=== PATIENT | female | born 1935 | race Two or more races ===

== ENCOUNTER 2018-06-25 09:49 | Inpatient (IN) | payer MEDICARE, MEDICAID ==
[2018-06-25] MEDS ORDERED: NS 0.9% 1000 ML* 1,000 ML IV ONE (10:19)
[2018-06-25 10:51] LABS: ABS Basophils 0.1 10^3/ul (0-0.2); ABS Eosinophils 0.1 10^3/ul (0-0.6); ABS Lymphocytes 1.4 10^3/ul (1.0-4.8); ABS Monocytes 0.5 10^3/ul (0-0.8); ABS Neutrophils 5.9 10^3/ul (1.5-7.7); ABS Nucleated RBC 0 10^3/ul; Eosinophil % 0.7 % (0-6); Hematocrit 39 % (35-47); Hemoglobin 13.4 g/dl (12.0-16.0); Lymphocyte % 17.5 % (25-47); Mean Corpuscular HGB Conc 34 g/dl (31-36); Mean Corpuscular Hemoglobin 31 pg (27-31); Mean Corpuscular Volume 91 fL (80-97); Mean Platelet Volume 9.3 fL (7.4-10.4); Nucleated Red Blood Cells % 0; Platelet Count 171 10^3/ul (150-450); Red Blood Count 4.31 10^6/ul (4.00-5.40); Red Cell Distribution Width 13 % (10.5-15)
--- NOTE | 2018-06-25 10:58 | ED ---
GI/ HPI - HPI Summary HPI Summary: Patient is a 83 y/o F w/ c/o dark black, bloody stool last night. Patient does not speak Micronesian, daughter present to translate. Daughter states that patient was tachycardic and hypotensive last night, EMS was called. They told her that it did not appear there was blood in the stool, asked if patient wanted to go to hospital. Patient refused to go to hospital. This morning patient had another episode of dark black and bloody stool. Daughter also reports that patient vomited this morning, with emesis of a similar appearance to her stool. Patient has had a similar episode in her 40s due to an ulcer which was surgically removed in the [facility]. 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 Patient is not on blood thinners, she is on anti- hypertensive medication and beta kin. Patient denies dizziness, fever, chills, ROMANO, ear pain, sore throat, blurred vision, double vision, neck pain, CP, SOB, ABD pain, back pain, dysuria, hematuria, constipation, edema, bruising, rashes, depression, anxiety. On triage, pain is denied, nothing is noted to aggravate/alleviate Sx. Home medications and allergies are reviewed. - History of Current Complaint Chief Complaint: EDGIBleed Stated Complaint: BLOOD IN STOOL Hx Obtained From: Family/Hide Tanner - daughter Hx From Patient Unobtainable Due To: Other - patient does not speak sinhala Onset/Duration: Started Days Ago - onset last night, Still Present Timing: Intermittent Current Severity: None Pain Intensity: 0 Location of Pain: None Associated Signs and Symptoms: Positive: Vomiting, Black Tarry Stool, Blood w/ Stool, Other: - denies ROMANO, ear pain, sore throat, blurred vision, double vision , neck pain, SOB, edema and rashes. Negative: Back Pain, Dizziness, Bruising, Constipation, Fever, Hematuria, Dysuria, Chills, Abdominal Pain, Chest Pain, UTI Symptoms Aggravating Factor(s): Nothing Alleviating Factor(s): Nothing - Allergy/Home Medications Allergies/Adverse Reactions: Allergies Allergy/AdvReac Type Severity Reaction Status Date / Time brimonidine [From Combigan] Allergy Severe Eyes Verified 06/25/18 09:57 Itchy/Swollen/Red/Watery ciprofloxacin [From Cipro] Allergy Severe GI Upset Verified 06/25/18 09:57 timolol [From Combigan] Allergy Severe Eyes Verified 06/25/18 09:57 Itchy/Swollen/Red/Watery Home Medications: Home Medications Dorzolamide/Timolol OPTH (NF) [Cosopt (NF)] 1 drop BOTH EYES BID 06/25/18 [ History Confirmed 06/25/18] Hydrochlorothiazide TAB* [Hydrodiuril TAB*] 25 - 50 mg PO DAILY 06/25/18 [ History Confirmed 06/25/18] Lisinopril TAB* [Prinivil TAB*] 20 mg PO DAILY 06/25/18 [History Confirmed 06/25] Nadolol TAB* [Corgard TAB*] 40 mg PO DAILY 06/25/18 [History Confirmed 06/25/18] PMH/Surg Hx/FS Hx/Imm Hx Endocrine/Hematology History: Denies: Hx Diabetes Cardiovascular History: Reports: Hx Hypertension Denies: Hx Congestive Heart Failure, Hx Pacemaker/ICD History: Denies: Hx Renal Disease Sensory History: Reports: Hx Hearing Aid Neurological History: Denies: Other Neuro Impairments/Disorders - DENIES Psychiatric History: Denies: Hx Panic Disorder - Surgical History Surgery Procedure, Year, and Place: VEIN STRIPPING, HYSTERECTOMY, LASER EYE, LEFT LEG INFECTION Infectious Disease History: No Infectious Disease History: Denies: Traveled Outside the [place] in Last 30 Days - Family History Known Family History: Negative: Blood Disorder - Social History Alcohol Use: None Substance Use Type: Reports: None Smoking Status (MU): Never Smoked Tobacco Review of Systems Negative: Fever, Chills Positive: Other - NEGATIVE: double vision . Negative: Blurred Vision Negative: Sore Throat, Ear Ache Negative: Chest Pain Negative: Shortness Of Breath Positive: Vomiting. Negative: Abdominal Pain Positive: other - NEGATIVE: constipation POSITIVE: black tarry stool with blood . Negative: dysuria, hematuria Positive: Other - NEGATIVE: back and neck pain . Negative: Edema Negative: Rash, Bruising Neurological: Other - NEGATIVE: dizziness Negative: Headache Negative: Anxious, Depressed All Other Systems Reviewed And Are Negative: No Physical Exam - Summary Physical Exam Summary: Appearance: Alert, conversive, nontoxic appearing Skin: Warm, dry, no mottling, no rashes, no contusions HEENT: EOMI, PERRL, dry mucous membranes Neck: No masses on the neck, supple Respiratory: Clear to auscultation, breath sounds present, no rales, no rhonchi , no wheezes Cardiovascular: RRR, pulses are symmetrical in both lower and upper extremities Abdomen: Soft, non-tender Bowel Sounds: Present Musculoskeletal: No CVA tenderness, no obvious deformity, moving all extremities in a grossly normal manner Neurological: A&Ox3, CN II-XII Intact, moving all extremities symmetrically Psychiatric: Normal affect and mood Triage Information Reviewed: Yes Vital Signs On Initial Exam: Initial Vitals Temp Pulse Resp BP Pulse Ox 98.4 F 60 14 115/52 98 06/25/18 09:51 06/25/18 09:51 06/25/18 09:51 06/25/18 09:51 06/25/18 09:51 Vital Signs Reviewed: Yes Diagnostics - Vital Signs Vital Signs Temp Pulse Resp BP Pulse Ox 06/25/18 09:51 98.4 F 60 14 115/52 98 - Laboratory Result Diagrams: 06/26/18 05:30 06/26/18 05:30 Lab Statement: Any lab studies that have been ordered have been reviewed, and results considered in the medical decision making process. GIGU Course/Dx - Course Course Of Treatment: Patient is a 83 y/o F w/ c/o dark black, bloody stool last night. Patient does not speak Micronesian, daughter present to translate. Daughter states that patient was tachycardic and hypotensive last night, EMS was called. They told her that it did not appear there was blood in the stool, asked if patient wanted to go to hospital. Patient refused to go to hospital. This morning patient had another episode of dark black and bloody stool. Daughter also reports that patient vomited this morning, with emesis of a similar appearance to her stool. Patient has had a similar episode in her 40s due to an ulcer which was surgically removed in the [facility]. 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 Patient denies dizziness, fever, chills, ROMANO, ear pain, sore throat, blurred vision, double vision, neck pain, CP , SOB, ABD pain, back pain, dysuria, hematuria, constipation, edema, bruising, rashes, depression, anxiety. On physical exam, patient is noted to have dry mucous membranes. Labs showed RBC 4.31, Hgb 13,4, Hct 39, potassium 3.2, BUN 42 , glucose 180, lactic acid 2.3, magnesium 1.8, alk phos 33, trop 0.01, lipase 12 , TSH 0.82. Stool Occult Blood was positive. During ED course, patient received fluids and protonix 80 mg IV, Protonix IV bag, and Potassium Chloride 20 meq/ 100 ml Ivpremix. Patient's case was discussed with Dr. Escoto at 1135. She recommends admission of patient, she notes that patient should be NPO and on PPI. 1150 - Dr. Bell was consulted on patient's case, patient will be admitted. Dx of GI bleed. - Diagnoses Provider Diagnoses: GI bleed - Physician Notifications Discussed Care Of Patient With: Pham Escoto Time Discussed With Above Provider: 11:35 Instructed by Provider To: Other - Patient's case was discussed with Dr. Letitia Zamudio at 1135. She recommends admission of patient, she notes that patient should be NPO and on PPI. 1150 - Dr. Bell was consulted on patient's case, patient will be admitted. Discharge - Sign-Out/Discharge Documenting (check all that apply): Patient Departure - admit - Discharge Plan Condition: Good Disposition: ADMITTED TO [facility] - Billing Disposition and Condition Condition: GOOD Disposition: Admitted to [facility] - Attestation Statements Document Initiated by Lucian: Yes Documenting Scribe: Faheem Escobar Provider For Whom Lucian is Documenting (Include Credential): Brianne Michael MD Scribe Attestation: Faheem Gentile , scribed for Brianne Michael MD on 06/26/18 at 1002. Scribe Documentation Reviewed: Yes Provider Attestation: The documentation as recorded by the Faheem kiran accurately reflects the service I personally performed and the decisions made by me, Brianne Michael MD
[2018-06-25 11:01] LABS: INR 0.96 (0.77-1.02)
[2018-06-25 11:13] LABS: EGFR Non-African American 87.3 (>60)
[2018-06-25] MEDS ORDERED: KCL 20 MEQ/100 ML IVPREMIX* 20 MEQ/100 ML BAG IV ONE (11:20)
[2018-06-25] MEDS ORDERED: Pantoprazole IV* 40 MG IV ONE (11:38)
[2018-06-25] MEDS ORDERED: Pantoprazole* 80 mg IN NS 80 MG/250 ML BAG IVPB ONE (11:38)
[2018-06-25] MEDS ORDERED: Magnesium Sulfate 1 GM IV* 1 GM/100 ML BAG IV ONE (13:30)
[2018-06-25] MEDS ORDERED: Midazolam* 1 MG/ML 10 ML VIAL (10 MG) ONE (15:14)
[2018-06-25] MEDS ORDERED: fentaNYL* 50 MCG/ML 2 ML VIAL (100 MCG VIAL) ONE (15:14)
[2018-06-25] MEDS ORDERED: Glucagon* 1 MG VIAL ONE (17:36)
[2018-06-25] MEDS: KCL 10 MEQ/50 ML IVPREMIX* 10 MEQ/50 ML BAG IV SCH (17:39)
[2018-06-25] MEDS: NS 0.9% 1000 ML* 1,000 ML IV SCH (17:39)
[2018-06-25 18:17] LABS: Hematocrit 31 % (35-47); Hemoglobin 10.6 g/dl (12.0-16.0)
[2018-06-25 18:26] LABS: EGFR Non-African American 120.9 (>60)
--- NOTE | 2018-06-25 19:09 | PRO ---
CC: Rachel Bell DO PROCEDURE NOTE: DATE OF PROCEDURE: 06/25/18 ATTENDING PHYSICIAN: Rachel Bell DO PROCEDURE: EGD with BiCap. MEDICATIONS GIVEN: 1. Midazolam 4 mg IV. 2. Fentanyl 50 mcg IV. 3. Glucagon 1 mg IV. INDICATIONS: Coffee-ground emesis and melena since yesterday PM. History of gastric or duodenal ulcer over 40 years ago for which she had partial resection of her stomach, although details unknown. The patient denies NSAID use. PROCEDURE IN DETAIL: Full disclosure of risks were reviewed with the patient and the patient's daughter as detailed on the consent form. The patient was placed in the left lateral decubitus position and monitored with continuous pulse oximetry, interval blood pressure monitoring, and direct observation. A bite-block was placed between the teeth. An Olympus gastroscope was then inserted into the patient's mouth and advanced down the esophagus, into the stomach, and into the 2 limbs of small intestine. Findings are described below. FINDINGS: Esophagus is a tubular structure with a widely patent Schatzki's ring and small hiatal hernia. There was no esophagitis. Scope was then advanced into the stomach. There was a small amount of dark liquid, likely corresponding to old blood, seen in the stomach. This was washed and suctioned. The gastric mucosa was without erosions or ulcers. There was no active bleeding. Scope was then advanced to the site of surgical anastomosis. 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 At the anastomosis , there were at least 2 ulcers, one of these ulcers was clean based and around 1 cm in size. The other ulcer was also around 1 cm in size and contained a pigmented spot. These ulcers were not bleeding. An attempt was made to place a clip at the site of the pigmented spot, but the clip did not adhere to the target. Glucagon 1 mg IV was given to slow down intestinal motility in order to improve visualization. A 7-Kyrgyz BiCap probe was then used to treat the pigmented spot with good effect. Both limbs of small intestine were evaluated for at least 15 cm and were without active bleeding or erosions or ulcers. Scope was then withdrawn from the patient. The patient tolerated the procedure well. IMPRESSION: 1. 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 2. Two anastomotic (marginal) ulcers. One ulcer was clean based and the other had a pigmented spot, which was treated with BiCap. No active bleeding at start or end of case. These ulcers are felt to be the source of the patient's bleeding. RECOMMENDATIONS: 1. Continue PPI IV b.i.d. versus drip x72 hours. 2. N.p.o./ice chips tonight. Can likely advance to clears tomorrow if the patient remains stable 3. Please check an H. Pylori stool antigen. 4. Continue to monitor CBC. 5. Avoid NSAIDs. 6. Will need outpatient f/u in clinic and repeat EGD in 6-8 weeks to reassess ulcers for healing. We will arrange this follow-up. Thank you very much for this referral. [id number]/[facility] #: [id number] MARLA
--- NOTE | 2018-06-25 19:42 | HP ---
AMENDED REPORT NOW INCLUDES DESIGNATED COSIGNER CC: Dr. Campos; Pham Escoto MD * HISTORY AND PHYSICAL: DATE OF ADMISSION: 06/25/18 PRIMARY CARE PHYSICIAN: Appears to be Dr. Campos. ATTENDING PHYSICIAN: Rachel Bell DO * (dictated by Kacie Butterfield NP). MANAGER EMPLOYEE BENEFITS: Pham Escoto MD CHIEF COMPLAINT: Melena and coffee-ground emesis. HISTORY OF PRESENT ILLNESS: This is an 83-year-old female with a past medical history significant for hypertension and a possible history of an ulcer 40 years ago, who presented to the ED after having black tarry stools since last night. The patient is non-Chilean speaking; however, per her daughter she was in her usual state of health, perhaps feeling a little bit more fatigued than usual, but with no recent illness or fevers, when last night she developed dark liquidy stools and was pale and diaphoretic. The patient's daughter called EMS and when they arrived, they thought that there did not appear to be any blood in the stool. They asked the patient if she wanted to go to the hospital and she refused at that time. The patient's daughter reported that her systolic blood pressure was around 100, which is low for her. Later that evening, the patient had additional episodes of dark liquidy stools and also had an episode of emesis with dark coffee-ground appearing emesis. This morning, she had additional episodes of dark tarry stools that were liquidy and and she decided to come to the ED. The patient is not on any blood thinners. She denies NSAID use and alcohol use. In the ED, the patient continued to have dark liquidy stools. She denied any nausea, vomiting, or abdominal pain. The patient denies any episodes of vomiting prior to the episode of coffee-ground emesis last night. She denies any recent weight loss or change in her appetite. Denied chest pain, shortness of breath, dizziness, headache, dysuria, numbness or tingling in her extremities. A fecal occult blood test was sent, which was positive. The patient's vital signs were stable with a systolic blood pressure between 115 and the 130s and heart rate between 55 and 60; however, the patient is also on a beta-kin. GI was consulted by the ED physician and the patient was given 1 L fluid bolus as well as given pantoprazole and started on a pantoprazole drip. Hospitalist team was asked to admit the patient for further workup of her GI bleed. Dr. Escoto will be seeing the patient and anticipates an EGD later today. PAST MEDICAL HISTORY: Hypertension, glaucoma. PAST SURGICAL HISTORY: Varicose vein procedure, hysterectomy, laser eye surgery , and some kind of prior GI surgery about 40 years ago possibly related to an ulcer. HOME MEDICATIONS: 1. Dorzolamide/timolol 1 drop both eyes b.i.d. 2. Hydrochlorothiazide 25 to 50 mg p.o. daily. The patient reports taking two 25 mg tablets daily. 3. Nadolol 40 mg p.o. daily. 4. Lisinopril 20 mg p.o. daily. ALLERGIES: CIPRO, BRIMONIDINE and TIMOLOL. FAMILY HISTORY: The patient denies family history of heart disease or diabetes. She does have a son, who had leukemia. SOCIAL HISTORY: The patient denies smoking cigarettes or drinking alcohol. The patient would like to be full code. The patient's medical decision maker will be her daughter, Lissa Negrete. REVIEW OF SYSTEMS: I performed a 14-point review of systems. All the pertinent positives and negatives are mentioned in the history of present illness. The remaining review of systems are negative. PHYSICAL EXAMINATION GENERAL APPEARANCE: The patient is alert, pleasant, and appears to be in no acute distress. She does not appear to be pale or diaphoretic. VITAL SIGNS: Temperature 98.4, heart rate 60, blood pressure 115/52, respiratory rate 14, pulse ox 98% on room air. HEENT: Normocephalic, atraumatic. Pupils are equal, round, and reactive to light and accommodation. Extraocular movements are intact. NECK: Supple. No lymphadenopathy noted. No JVD appreciated. RESPIRATORY: No accessory muscle use and lungs are clear to auscultation. Normal work of breathing. CARDIAC: Regular rate and rhythm. S1 and S2 present. No murmurs, rubs, or gallops heard. ABDOMEN: Soft and nondistended. Bowel sounds x4. There is some right lower quadrant tenderness to deep palpation; however, there is no rebound or guarding. EXTREMITIES: No lower extremity edema. DP and PT pulses are 2+ and symmetric. MUSCULOSKELETAL: There is no clubbing or cyanosis noted. The patient exhibited 5/5 strength in all 4 extremities. NEURO: The patient is alert and oriented; however, she does not speak Chilean and her daughter provided translation. PSYCH: The patient is calm and cooperative. SKIN: No rashes or abnormalities seen. DIAGNOSTIC STUDIES/LAB DATA: Sodium 136, potassium 3.2, chloride 104, carbon dioxide 24, anion gap 8, BUN 42, creatinine 0.65, glucose 180, lactic acid 2.3, calcium 8.9, magnesium 1.8. Total bili 0.8, AST 21, ALT 21, alk phos 33. Troponin 0.01. Total protein 6.3, albumin 3.5, globulin 2.8, lipase 12. TSH 0.82. INR 0.96. White blood cell count 8, RBC 4.31, hemoglobin 13.4, hematocrit 39, MCV 91, MCH 31, MCHC 34, RDW 13, platelet count 171,000, neutrophil percent 74, lymph percent 17.5, mono percent 6.6, eosinophil percent 0.7, baso percent 1.2. Diagnostics: Chest x-ray was performed, which showed no evidence for active cardiopulmonary disease. ASSESSMENT: The patient is an 83-year-old female with a past medical history of hypertension and possible history of an ulcer about 40 years ago, who presented to the ED with melena and coffee-ground emesis and will be admitted to the hospitalist service for additional medical management of GI bleed. The patient is being followed by Dr. Escoto with Gastroenterology. PLAN: 1. GI bleed. Symptoms of melena and coffee ground emesis suggest upper GI bleed. The patient denies NSAID use or EtOH use. She does have a possible remote history of a past bleeding peptic ulcer, so this is one of the possible differentials for her upper GI bleed. The patient's vitals are currently stable with systolic blood pressure between 115 and 130. Her heart rate is stable between 55 and 60. The patient's initial H and H was 13.4 and 37. She has had additional dark stools in the ED. Her fecal occult blood test was positive. We will repeat her H and H in 6 hours. The patient does have [address] She has already received IV hydration with 1 L of normal saline and we will continue fluid support at 75 mL an hour. The patient has also received 80 mg IV Protonix in the ED and was then started on a Protonix drip, which we will continue. Dr. Escoto with Gastroenterology is following and will be evaluating the patient. She anticipates possible EGD later this afternoon. The patient was found to have a lactic acid of 2.3, likely in the setting of her bleed. We will continue IV hydration and recheck in 6 hours. 2. Hypertension. Due to the patient's active bleed and risk for hypotension, I will be holding her home antihypertensives including hydrochlorothiazide, nadolol, and lisinopril. Pt has been normotensive in the ED. 3. Hypokalemia. The patient had a potassium of 3.2 in the ED. She was given 20 mEq of potassium by the ED physician and I have ordered an additional 20 mEq of potassium. We will recheck her potassium in 6 hours. 4. Hypomagnesemia. The patient was found to have a magnesium of 1.8, which I will replete with 1 g of magnesium. 5. Diet: The patient is n.p.o. pending her anticipated GI procedure. 6. DVT prophylaxis: SCDs. 7. Code status: The patient is full code. 8. Disposition: Inpatient. Anticipate discharge home when medically stable. TIME SPENT: Time spent for this admission was 60 minutes, 35 minutes were spent with the patient discussing medications, past medical history and events leading up to her arrival today, and performing a physical exam. The case has been reviewed with the attending, Dr. Bell, who agrees with the plan of care. KACIE BUTTERFIELD, LUCIEN [id number]/[facility] #: [id number] MARLA
[2018-06-25] MEDS ORDERED: PTO: Dorzolamide/Timolol OPTH (NF) 10 ML BOT BOTH EYES SCH (21:00)
--- NOTE | 2018-06-25 21:14 | CONS ---
GASTROENTEROLOGY CONSULT NOTE: DATE OF CONSULT: 06/25/18 REASON FOR CONSULT: Melena and coffee ground emesis. HISTORY OF PRESENT ILLNESS: Ms. Arthur is an 83-year-old woman with a remote history of gastric or duodenal ulcer requiring some type of surgical resection, and hypertension, who presents after 1 day of coffee-ground emesis and melena. Ms. Arthur was in her usual state of health until yesterday evening when she started having black stools. Her daughter, who acts as a web portal developer, says that the stool was initially hard. She then developed vomiting of coffee- ground emesis. There was some food mixed in the emesis initially. The patient got quite dizzy with drop in blood pressure and heart rate. EMS was called. The patient declined being transported to the hospital. Overnight, the patient continued to have multiple episodes of coffee-ground emesis. She was brought to the ER today. In the ER, she had several episodes of loose black stools with possible clots. No further episodes of coffee-ground emesis. She reports very mild right lower quadrant pain, but denies any other GI symptoms. No history of GERD, chronic GI symptoms, dysphagia, chronic abdominal pain, constipation, or diarrhea. No recent weight loss. She denies any NSAID use. PAST MEDICAL HISTORY: The patient has history of hypertension and remote history of peptic ulcer disease requiring some type of surgical resection of portion of her stomach around 40 years ago. PAST SURGICAL HISTORY: Gastric surgery for PUD bleed. The patient had vein stripping recently. She has a history of hysterectomy. MEDICATIONS: 1. Cosopt eye drops. 2. Hydrochlorothiazide 25 to 50 mg daily. 3. Lisinopril. 4. Nadolol. FAMILY HISTORY: No known GI or liver disease. SOCIAL HISTORY: The patient is from [facility]. She lives with her daughter. She is a nonsmoker. No drug or alcohol use. REVIEW OF SYSTEMS: Full review of systems including 12-point was negative except as above. PHYSICAL EXAM: Vital Signs: Reviewed. Afebrile, heart rate in the 50s, blood pressure 120s/ 50s, 99% on room air. On exam, patient is a pleasant, non-Arabic speaking Kazakh woman. No acute distress. HEENT: Mildly dry mucous membranes. Cardiovascular: Regular rate and rhythm. No murmurs, rubs, or gallops. Pulm: Breathing comfortably. Lungs are clear to auscultation bilaterally. Abdomen: Positive bowel sounds. Soft, nontender, and nondistended. Extremities: No significant edema. Skin: No jaundice. DIAGNOSTIC STUDIES/LAB DATA: Labs reviewed. The patient has normal white count and hematocrit of 39 with a hemoglobin of 13.4. Platelet count is normal. INR is normal. Her comprehensive panel was notable for a BUN of 42 and a creatinine that is normal. LFTs are normal. Imaging: Chest x-ray performed and largely unremarkable. IMPRESSION AND PLAN: Ms. Arthur is an 83-year-old woman with a remote medical history of some type of peptic ulcer disease requiring what sounds like a partial resection of stomach, who presents today with less than 24 hours of coffee-ground emesis and melena concerning for an upper GI bleed. Reassuringly , the patient is hemodynamically stable. Presentation suggestive of upper GI bleed. Labs show a normal hemoglobin and hematocrit, although I suspect that these might decrease after the patient is given fluids and labs have time to re-equilibrate. She has an interesting history of what sounds like some type of peptic ulcer disease, so I suspect she would be at increased risk of recurrent ulcer disease sv marginal ulcers. Differential also includes esophagitis, gastritis, arteriovenous malformations, Dieulafoy, Deysi-Figueroa tear. - NPO - IV PPI drip or b.i.d. IV. - We will plan for EGD this afternoon to assess for bleeding source. Thank you very much for this consult. [id number]/[facility] #: [id number] MARLA
[2018-06-25] MEDS: Pantoprazole* 80 mg IN NS 80 MG/250 ML BAG IVPB SCH (23:17)
[2018-06-26] MEDS: KCL 10 MEQ/50 ML IVPREMIX* 10 MEQ/50 ML BAG IV SCH (00:15)
[2018-06-26 06:02] LABS: ABS Basophils 0 10^3/ul (0-0.2); ABS Eosinophils 0.2 10^3/ul (0-0.6); ABS Lymphocytes 1.5 10^3/ul (1.0-4.8); ABS Monocytes 0.7 10^3/ul (0-0.8); ABS Neutrophils 4.8 10^3/ul (1.5-7.7); ABS Nucleated RBC 0 10^3/ul; Eosinophil % 2.8 % (0-6); Hematocrit 32 % (35-47); Hemoglobin 11.2 g/dl (12.0-16.0); Lymphocyte % 20.3 % (25-47); Mean Corpuscular HGB Conc 35 g/dl (31-36); Mean Corpuscular Hemoglobin 32 pg (27-31); Mean Corpuscular Volume 91 fL (80-97); Mean Platelet Volume 9.5 fL (7.4-10.4); Nucleated Red Blood Cells % 0; Platelet Count 143 10^3/ul (150-450); Red Blood Count 3.54 10^6/ul (4.00-5.40); Red Cell Distribution Width 13 % (10.5-15); White Blood Count 7.3 10^3/ul (3.5-10.8)
[2018-06-26 06:24] LABS: EGFR Non-African American 93.9 (>60)
[2018-06-26] MEDS: PTO: Dorzolamide/Timolol OPTH (NF) 10 ML BOT BOTH EYES SCH ×2 (06:57→18:59)
[2018-06-26] MEDS: NS 0.9% 1000 ML* 1,000 ML IV SCH (06:58)
[2018-06-26] MEDS: Pantoprazole* 80 mg IN NS 80 MG/250 ML BAG IVPB SCH ×2 (07:49→17:43)
[2018-06-26 14:31] LABS: ABS Basophils 0 10^3/ul (0-0.2); ABS Eosinophils 0.2 10^3/ul (0-0.6); ABS Lymphocytes 1.5 10^3/ul (1.0-4.8); ABS Monocytes 0.7 10^3/ul (0-0.8); ABS Neutrophils 5.1 10^3/ul (1.5-7.7); ABS Nucleated RBC 0 10^3/ul; Eosinophil % 3.2 % (0-6); Hematocrit 33 % (35-47); Hemoglobin 11.5 g/dl (12.0-16.0); Lymphocyte % 19.4 % (25-47); Mean Corpuscular HGB Conc 34 g/dl (31-36); Mean Corpuscular Hemoglobin 32 pg (27-31); Mean Corpuscular Volume 92 fL (80-97); Mean Platelet Volume 9.2 fL (7.4-10.4); Nucleated Red Blood Cells % 0; Platelet Count 162 10^3/ul (150-450); Red Blood Count 3.63 10^6/ul (4.00-5.40); Red Cell Distribution Width 13 % (10.5-15); White Blood Count 7.6 10^3/ul (3.5-10.8)
--- NOTE | 2018-06-26 16:11 | PN ---
Subjective Date of Service: 06/26/18 Interval History: Pt seen and examined. Meds and labs reviewed. CC: Small amount of blood in stool reported by RN sometime in the afternoon today. Unremarkable O/N stay ROS: Denied ROMANO/dizziness, F/C, N/V, CP, SOB, increased cough, sputum production , abd pain, diarrhea, constipation, dysuria, myalgias, arthralgias, throat pain , and new skin lesions. The rest of the 14 point ROS are unremarkable. PHYSICAL EXAM: GEN APPEARANCE: Awake, not in acute distress HEENT: NC/AT, PERRLA, moist oral mucosa, (-) throat erythema NECK: Soft, supple, (-) cervical LAD, (-)JVD HEART: S1S2 WNL, RRR, No MRG CHEST: CTA, BL, GAE, No W/R/R ABD: Soft, ND/NT, NABS 4x Q EXT: No C/C/E SKIN: Warm to touch PSYCH: No active psychosis, hallucinations, depression, SI/HI Objective Active Medications: Dorzolamide/Timolol (Cosopt (Nf)) 1 drop BOTH EYES BID@0700,1900 [facility]; Protocol Last Admin: 06/26/18 06:57 Dose: 1 drp Sodium Chloride (Ns 0.9% 1000 Ml*) 1,000 mls @ 75 mls/hr IV PER RATE [facility] Last Admin: 06/26/18 06:58 Dose: 75 mls/hr Pantoprazole Sodium (Protonix Iv Bag*) 80 mg in 250 mls @ 25 mls/hr IVPB Q10H [facility] Last Admin: 06/26/18 07:49 Dose: 25 mls/hr Vital Signs - 8 hr 06/26/18 06/26/18 08:50 12:13 Temperature 98.7 F Pulse Rate 62 64 Respiratory 16 Rate Blood Pressure 127/56 (mmHg) O2 Sat by Pulse 97 Oximetry Oxygen Devices in Use Now: None Result Diagrams: 06/26/18 14:16 06/26/18 05:30 Microbiology and Other Data: Microbiology 06/25/18 10:53 Stool Occult Blood (MULU) - Final Stool Assess/Plan/Problems-Billing Assessment: - Patient Problems (1) GIB (gastrointestinal bleeding) Current Visit: Yes Status: Acute Code(s): K92.2 - GASTROINTESTINAL HEMORRHAGE, UNSPECIFIED SNOMED Code(s): 48192678 Comment: -S/P EGD w/BiCap 06/25/18 reveals 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 pylori Ag, however, pt already on PPI gtt and may affect result---will d/w GI (2) HTN (hypertension) Current Visit: Yes Status: Acute Code(s): I10 - ESSENTIAL (PRIMARY) HYPERTENSION SNOMED Code(s): 20572476 Comment: -Well-controlled BP -Continue to hold home anti-hypertensives (3) Hypomagnesemia Current Visit: Yes Status: Acute Code(s): E83.42 - HYPOMAGNESEMIA SNOMED Code(s): 564167340 Comment: -Corrected -Will continue watchful waiting (4) DVT prophylaxis Current Visit: Yes Status: Acute Code(s): HXG1340 - SNOMED Code(s): 267086934 Comment: -Continue SCDs -Pharmacologic DVTp contraindicated given GIB Status and Disposition: -As above
[2018-06-26 22:03] LABS: ABS Basophils 0 10^3/ul (0-0.2); ABS Eosinophils 0.2 10^3/ul (0-0.6); ABS Lymphocytes 1.9 10^3/ul (1.0-4.8); ABS Monocytes 0.6 10^3/ul (0-0.8); ABS Neutrophils 3.3 10^3/ul (1.5-7.7); ABS Nucleated RBC 0 10^3/ul; Eosinophil % 3.5 % (0-6); Hematocrit 31 % (35-47); Hemoglobin 10.5 g/dl (12.0-16.0); Lymphocyte % 30.8 % (25-47); Mean Corpuscular HGB Conc 34 g/dl (31-36); Mean Corpuscular Hemoglobin 31 pg (27-31); Mean Corpuscular Volume 92 fL (80-97); Mean Platelet Volume 9.4 fL (7.4-10.4); Nucleated Red Blood Cells % 0.1; Platelet Count 149 10^3/ul (150-450); Red Blood Count 3.36 10^6/ul (4.00-5.40); Red Cell Distribution Width 13 % (10.5-15)
[2018-06-27] MEDS ORDERED: hydrALAZINE IV* 20 MG/ML VIAL IV SLOW PU ONE (00:30)
[2018-06-27] MEDS: Pantoprazole* 80 mg IN NS 80 MG/250 ML BAG IVPB SCH ×3 (03:04→23:25)
[2018-06-27 06:10] LABS: Hematocrit 29 % (35-47); Hemoglobin 9.9 g/dl (12.0-16.0); Mean Corpuscular HGB Conc 35 g/dl (31-36); Mean Corpuscular Hemoglobin 32 pg (27-31); Mean Corpuscular Volume 91 fL (80-97); Mean Platelet Volume 9.1 fL (7.4-10.4); Platelet Count 152 10^3/ul (150-450); Red Blood Count 3.14 10^6/ul (4.00-5.40); Red Cell Distribution Width 13 % (10.5-15); White Blood Count 6.2 10^3/ul (3.5-10.8)
[2018-06-27 06:40] LABS: EGFR Non-African American 105.8 (>60)
[2018-06-27] MEDS: NS 0.9% 1000 ML* 1,000 ML IV SCH (06:50)
[2018-06-27] MEDS: PTO: Dorzolamide/Timolol OPTH (NF) 10 ML BOT BOTH EYES SCH ×2 (06:50→19:17)
[2018-06-27] MEDS ORDERED: Magnesium Sulfate 2 GM IV* 2 GM/50 ML BAG IVPB ONE (09:21)
[2018-06-27] MEDS ORDERED: Calcium Gluconate INJ* 1 GM in NS 0.9% 50 ML* 50 ML IVPB ONE (10:30)
[2018-06-27] MEDS ORDERED: Sodium Phosphate INJ* 15 MMOLE in NS 0.9% 250 ML* 250 ML IVPB ONE (11:30)
[2018-06-27] MEDS: Sucralfate TAB* 1 GM PO SCH ×3 (12:07→20:41)
[2018-06-27 14:36] LABS: ABS Basophils 0 10^3/ul (0-0.2); ABS Eosinophils 0.2 10^3/ul (0-0.6); ABS Lymphocytes 1.5 10^3/ul (1.0-4.8); ABS Monocytes 0.5 10^3/ul (0-0.8); ABS Neutrophils 3.8 10^3/ul (1.5-7.7); ABS Nucleated RBC 0 10^3/ul; Hematocrit 29 % (35-47); Hemoglobin 9.8 g/dl (12.0-16.0); Mean Corpuscular HGB Conc 34 g/dl (31-36); Mean Corpuscular Hemoglobin 31 pg (27-31); Mean Corpuscular Volume 93 fL (80-97); Mean Platelet Volume 9.5 fL (7.4-10.4); Nucleated Red Blood Cells % 0; Platelet Count 158 10^3/ul (150-450); Red Blood Count 3.12 10^6/ul (4.00-5.40); Red Cell Distribution Width 13 % (10.5-15); White Blood Count 6.1 10^3/ul (3.5-10.8)
[2018-06-27] MEDS ORDERED: hydrALAZINE IV* 20 MG/ML VIAL IV SLOW PU PRN (18:02)
--- NOTE | 2018-06-27 18:05 | PN ---
Subjective Date of Service: 06/27/18 Interval History: Pt seen and examined. Meds and labs reviewed. CC: N/A ROS: Denied ROMANO/dizziness, F/C, N/V, CP, SOB, increased cough, sputum production , abd pain, diarrhea, constipation, dysuria, myalgias, arthralgias, throat pain , and new skin lesions. The rest of the 14 point ROS are unremarkable. PHYSICAL EXAM: GEN APPEARANCE: Awake, not in acute distress HEENT: NC/AT, PERRLA, moist oral mucosa, (-) throat erythema NECK: Soft, supple, (-) cervical LAD, (-)JVD HEART: S1S2 WNL, RRR, No MRG CHEST: CTA, BL, GAE, No W/R/R ABD: Soft, ND/NT, NABS 4x Q EXT: No C/C/E SKIN: Warm to touch PSYCH: No active psychosis, hallucinations, depression, SI/HI Objective Active Medications: Dorzolamide/Timolol (Cosopt (Nf)) 1 drop BOTH EYES BID@0700,1900 [facility] [place]; Protocol Last Admin: 06/27/18 06:50 Dose: 1 drp Hydralazine HCl (Apresoline Iv*) 5 mg IV SLOW PU Q6H PRN PRN Reason: Hypertension Sodium Chloride (Ns 0.9% 1000 Ml*) 1,000 mls @ 75 mls/hr IV PER RATE [facility] [place] Last Admin: 06/27/18 06:50 Dose: 75 mls/hr Pantoprazole Sodium (Protonix Iv Bag*) 80 mg in 250 mls @ 25 mls/hr IVPB Q10H [facility] [place] Last Admin: 06/27/18 14:17 Dose: 25 mls/hr Sucralfate (Carafate*) 1 gm PO ACHS [facility] [place] Last Admin: 06/27/18 16:11 Dose: 1 gm Vital Signs - 8 hr 06/27/18 11:29 Temperature 98.4 F Pulse Rate 64 Respiratory 20 Rate Blood Pressure 152/60 (mmHg) O2 Sat by Pulse 99 Oximetry Oxygen Devices in Use Now: None Result Diagrams: 06/27/18 13:59 06/27/18 05:54 Microbiology and Other Data: Microbiology 06/25/18 10:53 Stool Occult Blood (MULU) - Final Stool Assess/Plan/Problems-Billing Assessment: - Patient Problems (1) GIB (gastrointestinal bleeding) Current Visit: Yes Status: Acute Code(s): K92.2 - GASTROINTESTINAL HEMORRHAGE, UNSPECIFIED SNOMED Code(s): 51542872 Comment: -S/P EGD w/BiCap 06/25/18 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 Leigh -Continue clears---may advance in AM if no procedures planned and no significant drop in H&H -Repeat CBC at 1400 was reassuring---for repeat tonight at 2200 -Avoid NSAIDs -Sent sool for H. pylori Ag, however, pt already on PPI gtt and may affect result---will d/w GI (2) HTN (hypertension) Current Visit: Yes Status: Acute Code(s): I10 - ESSENTIAL (PRIMARY) HYPERTENSION SNOMED Code(s): 66094109 Comment: -Uncontrolled -Given likely small bleed rate as discussed above, will continue to hold PO meds , however, will place pt on PRN Hydralazine (3) Electrolyte abnormality Current Visit: Yes Status: Acute Code(s): E87.8 - OTH DISORDERS OF ELECTROLYTE AND FLUID BALANCE, NEC SNOMED Code(s): 818117207 Comment: -Corrected -Will continue watchful waiting (4) DVT prophylaxis Current Visit: Yes Status: Acute Code(s): LLC0960 - SNOMED Code(s): 852332870 Comment: -Continue SCDs -Pharmacologic DVTp contraindicated given GIB Status and Disposition: -As above
[2018-06-27 23:49] LABS: ABS Basophils 0 10^3/ul (0-0.2); ABS Eosinophils 0.3 10^3/ul (0-0.6); ABS Monocytes 0.6 10^3/ul (0-0.8); ABS Neutrophils 3.7 10^3/ul (1.5-7.7); ABS Nucleated RBC 0 10^3/ul; Eosinophil % 3.8 % (0-6); Hematocrit 26 % (35-47); Hemoglobin 9.1 g/dl (12.0-16.0); Lymphocyte % 30.2 % (25-47); Mean Corpuscular HGB Conc 35 g/dl (31-36); Mean Corpuscular Hemoglobin 32 pg (27-31); Mean Corpuscular Volume 91 fL (80-97); Mean Platelet Volume 9.2 fL (7.4-10.4); Nucleated Red Blood Cells % 0; Platelet Count 148 10^3/ul (150-450); Red Blood Count 2.89 10^6/ul (4.00-5.40); Red Cell Distribution Width 13 % (10.5-15); White Blood Count 6.6 10^3/ul (3.5-10.8)
[2018-06-28] MEDS ORDERED: Nitroglycerin TAB 0.4 MG* 0.4 MG TAB SL PRN (00:10)
[2018-06-28 05:23] LABS: Hematocrit 25 % (35-47); Hemoglobin 8.6 g/dl (12.0-16.0); Mean Corpuscular HGB Conc 34 g/dl (31-36); Mean Corpuscular Hemoglobin 31 pg (27-31); Mean Corpuscular Volume 92 fL (80-97); Mean Platelet Volume 9.2 fL (7.4-10.4); Platelet Count 138 10^3/ul (150-450); Red Blood Count 2.74 10^6/ul (4.00-5.40); Red Cell Distribution Width 13 % (10.5-15); White Blood Count 5.2 10^3/ul (3.5-10.8)
[2018-06-28 05:42] LABS: EGFR Non-African American 105.8 (>60)
[2018-06-28] MEDS: NS 0.9% 1000 ML* 1,000 ML IV SCH (06:04)
--- NOTE | 2018-06-28 06:15 | PN ---
Hospitalist Progress Note Date of Service: 06/27/18 ctbs due to chest pain 8/10 anterior chest after blood work was done ---> she was aroused from sleep and might cause her chest pain. stat ekg showed st t depression on v3 otherwise non specific st t change trop came back neg and one 0.4 sl nitro given ---> chest pain was almost completely gone down 2/10 after 10 min but pt declined for seond dose of sl nitro ( pt dose not speak tristanian but staff assigned to her is also from [place] ) second trop added to am lab
[2018-06-28] MEDS: PTO: Dorzolamide/Timolol OPTH (NF) 10 ML BOT BOTH EYES SCH ×2 (07:45→19:17)
[2018-06-28] MEDS: Sucralfate TAB* 1 GM PO SCH ×4 (08:43→19:50)
[2018-06-28] MEDS ORDERED: KCL 20 MEQ/100 ML IVPREMIX* 20 MEQ/100 ML BAG IV ONE (09:17)
[2018-06-28] MEDS ORDERED: Potassium Phosphate IV* 15 MMOLE in NS 0.9% 250 ML* 250 ML IVPB ONE (09:17)
[2018-06-28] MEDS ORDERED: hydrALAZINE IV* 20 MG/ML VIAL IV SLOW PU PRN (09:18)
[2018-06-28] MEDS: Pantoprazole* 80 mg IN NS 80 MG/250 ML BAG IVPB SCH ×2 (10:16→19:51)
--- NOTE | 2018-06-28 11:47 | PN ---
Progress Note - Progress Note Date of Service: 06/28/18 Note: BRIEF GASTROENTEROLOGY NOTE Patient underwent EGD on Saturday with several med/large marginal ulcers at anastomosis with thermal coagulation (Bicap probe) used to treat pigmented spot/ possible visible vessel in one of the ulcers. Interval Events: VSS. SBP 130's-150's. HR 60's-80's. Hct trend reviewed over past 24 hours: 29 > 29 > 26 > 25. BUN down from 33 to 17 this AM. Patient had formed black tarry stool this morning. Per daughter, the stool is more solid and less bloody/foul- smelling than the prior bowel movements. Discussed case with primary team and patient/patient's daughter. Possible that there may be some ongoing bleeding from marginal ulcers. Reassuringly, patient remains hemodynamically stable. Hct is down a few points in past 24 hours, although Hct did remain stable on most recent recheck. No recurrent coffee ground emesis or frequent melenic stools to suggest more active/significant ongoing bleeding. - Continue to monitor CBC every 8-12 hours - Continue PPI gtt vs IV BID - Continue clears or full liquid diet - Please check H pylori stool Ag. Testing for H pylori (via biopsy or stool testing) in setting of active bleeding and PPI use can result in potential false negative testing. If test is positive, then treatment of H pylori is indicated. If test is negative, then we can discuss pursuing H pylori breath testing in outpatient setting. - Consider repeat inpatient EGD to reasses ulcers if Hct continues to downtrend or acute clinical change develops. Otherwise, patient will need repeat EGD in 8- 12 weeks to reassess ulcers for healing. Pham Escoto MD Gastroenterology
[2018-06-28 15:03] LABS: ABS Basophils 0 10^3/ul (0-0.2); ABS Eosinophils 0.3 10^3/ul (0-0.6); ABS Lymphocytes 1.4 10^3/ul (1.0-4.8); ABS Monocytes 0.7 10^3/ul (0-0.8); ABS Neutrophils 3.4 10^3/ul (1.5-7.7); ABS Nucleated RBC 0 10^3/ul; Eosinophil % 4.3 % (0-6); Hematocrit 29 % (35-47); Lymphocyte % 24.8 % (25-47); Mean Corpuscular HGB Conc 34 g/dl (31-36); Mean Corpuscular Hemoglobin 31 pg (27-31); Mean Corpuscular Volume 92 fL (80-97); Mean Platelet Volume 8.8 fL (7.4-10.4); Nucleated Red Blood Cells % 0.1; Platelet Count 143 10^3/ul (150-450); Red Blood Count 3.18 10^6/ul (4.00-5.40); Red Cell Distribution Width 13 % (10.5-15); White Blood Count 5.8 10^3/ul (3.5-10.8)
--- NOTE | 2018-06-28 15:34 | PN ---
Subjective Date of Service: 06/28/18 Interval History: Pt seen and examined. Meds and labs reviewed. Had a CP reported to be responsive to 1x NTG, SL. CC: Had black tarry stools this AM. Dr. Zamudio informed and saw pt today. Please see discussion below ROS: Denied ROMANO/dizziness, F/C, N/V, CP, SOB, increased cough, sputum production , abd pain, constipation, dysuria, myalgias, arthralgias, throat pain, and new skin lesions. The rest of the 14 point ROS are unremarkable. PHYSICAL EXAM: GEN APPEARANCE: Awake, not in acute distress HEENT: NC/AT, PERRLA, moist oral mucosa, (-) throat erythema NECK: Soft, supple, (-) cervical LAD, (-)JVD HEART: S1S2 WNL, RRR, No MRG CHEST: CTA, BL, GAE, No W/R/R ABD: Soft, ND/NT, NABS 4x Q EXT: No C/C/E SKIN: Warm to touch PSYCH: No active psychosis, hallucinations, depression, SI/HI Objective Active Medications: Dorzolamide/Timolol (Cosopt (Nf)) 1 drop BOTH EYES BID@0700,1900 [facility]; Protocol Last Admin: 06/28/18 07:45 Dose: 1 drp Hydralazine HCl (Apresoline Iv*) 10 mg IV SLOW PU Q6H PRN PRN Reason: Hypertension Sodium Chloride (Ns 0.9% 1000 Ml*) 1,000 mls @ 75 mls/hr IV PER RATE [facility] Last Admin: 06/28/18 06:04 Dose: 75 mls/hr Pantoprazole Sodium (Protonix Iv Bag*) 80 mg in 250 mls @ 25 mls/hr IVPB Q10H [facility] Last Admin: 06/28/18 10:16 Dose: 25 mls/hr Nitroglycerin (Nitroglycerin Tab 0.4 Mg*) 0.4 mg SL Q5M PRN PRN Reason: ANGINA Last Admin: 06/28/18 00:22 Dose: 0.4 mg Sucralfate (Carafate*) 1 gm PO ACHS [facility] Last Admin: 06/28/18 12:22 Dose: 1 gm Vital Signs - 8 hr 06/28/18 06/28/18 06/28/18 07:33 08:00 11:01 Temperature 98.4 F 97.6 F Pulse Rate 73 70 Respiratory 16 16 20 Rate Blood Pressure 156/59 134/47 (mmHg) O2 Sat by Pulse 100 99 Oximetry Oxygen Devices in Use Now: None Result Diagrams: 06/28/18 14:55 06/28/18 05:02 Microbiology and Other Data: Microbiology 06/25/18 10:53 Stool Occult Blood (MULU) - Final Stool Assess/Plan/Problems-Billing Assessment: - Patient Problems (1) GIB (gastrointestinal bleeding) Current Visit: Yes Status: Acute Code(s): K92.2 - GASTROINTESTINAL HEMORRHAGE, UNSPECIFIED SNOMED Code(s): 22445037 Comment: -Will transfuse with 1 unit PRBC given melena and slow decrease of H&H -S/P EGD w/BiCap 06/25/18 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 Zamduio today -Continue clears---may advance in AM if no procedures planned and no significant drop in H&H -Repeat CBC at 1400 was reassuring---for repeat tonight at 2100 -Avoid NSAIDs -Sent sool for H. pylori Ag, however, pt already on PPI gtt and may affect result---d/w Dr. Zamudio who mentions that PPIs usually causes false negative, so if positive is likely to provide helpful information (2) Chest pain Current Visit: Yes Status: Acute Code(s): R07.9 - CHEST PAIN, UNSPECIFIED SNOMED Code(s): 94865910 Comment: -Resolved -Unclear cause given description sounded atypical -Troponins (-)x2---will sent last set together with repeat cbc planned at 2100 given pt appears to be having non-cardiac pain -EKG no changes from previous (3) HTN (hypertension) Current Visit: Yes Status: Acute Code(s): I10 - ESSENTIAL (PRIMARY) HYPERTENSION SNOMED Code(s): 14546448 Comment: -Uncontrolled -Given likely small bleed rate as discussed above, will continue to hold PO meds , however, will place pt on PRN Hydralazine (4) Electrolyte abnormality Current Visit: Yes Status: Acute Code(s): E87.8 - OTH DISORDERS OF ELECTROLYTE AND FLUID BALANCE, NEC SNOMED Code(s): 211441184 Comment: -Corrected -Will continue watchful waiting (5) DVT prophylaxis Current Visit: Yes Status: Acute Code(s): KIK4453 - SNOMED Code(s): 782122278 Comment: -Continue SCDs -Pharmacologic DVTp contraindicated given GIB Status and Disposition: -As above
[2018-06-28 21:25] LABS: Hematocrit 30 % (35-47); Hemoglobin 10.6 g/dl (12.0-16.0); Mean Corpuscular HGB Conc 35 g/dl (31-36); Mean Corpuscular Hemoglobin 32 pg (27-31); Mean Corpuscular Volume 92 fL (80-97); Mean Platelet Volume 9.6 fL (7.4-10.4); Platelet Count 156 10^3/ul (150-450); Red Blood Count 3.33 10^6/ul (4.00-5.40); Red Cell Distribution Width 13 % (10.5-15)
[2018-06-29] MEDS: NS 0.9% 1000 ML* 1,000 ML IV SCH (01:08)
[2018-06-29 05:19] LABS: ABS Basophils 0.1 10^3/ul (0-0.2); ABS Eosinophils 0.3 10^3/ul (0-0.6); ABS Lymphocytes 1.3 10^3/ul (1.0-4.8); ABS Monocytes 0.6 10^3/ul (0-0.8); ABS Neutrophils 3.4 10^3/ul (1.5-7.7); ABS Nucleated RBC 0 10^3/ul; Eosinophil % 5.3 % (0-6); Hematocrit 28 % (35-47); Hemoglobin 9.5 g/dl (12.0-16.0); Lymphocyte % 22.7 % (25-47); Mean Corpuscular HGB Conc 34 g/dl (31-36); Mean Corpuscular Hemoglobin 32 pg (27-31); Mean Corpuscular Volume 92 fL (80-97); Mean Platelet Volume 9.6 fL (7.4-10.4); Nucleated Red Blood Cells % 0.1; Platelet Count 134 10^3/ul (150-450); Red Blood Count 2.99 10^6/ul (4.00-5.40); Red Cell Distribution Width 13 % (10.5-15); White Blood Count 5.7 10^3/ul (3.5-10.8)
[2018-06-29] MEDS: Pantoprazole* 80 mg IN NS 80 MG/250 ML BAG IVPB SCH ×2 (05:36→16:07)
[2018-06-29 05:52] LABS: EGFR Non-African American 108.1 (>60)
[2018-06-29] MEDS: PTO: Dorzolamide/Timolol OPTH (NF) 10 ML BOT BOTH EYES SCH ×2 (07:16→19:22)
[2018-06-29] MEDS: Sucralfate TAB* 1 GM PO SCH ×4 (07:22→20:27)
[2018-06-29] MEDS ORDERED: Magnesium Sulfate 2 GM IV* 2 GM/50 ML BAG IVPB ONE (08:10)
[2018-06-29] MEDS ORDERED: Potassium Phosphate IV* 15 MMOLE in NS 0.9% 250 ML* 250 ML IVPB ONE (08:30)
[2018-06-29 14:03] LABS: Hematocrit 32 % (35-47); Mean Corpuscular HGB Conc 34 g/dl (31-36); Mean Corpuscular Hemoglobin 32 pg (27-31); Mean Corpuscular Volume 92 fL (80-97); Mean Platelet Volume 9.4 fL (7.4-10.4); Platelet Count 156 10^3/ul (150-450); Red Blood Count 3.48 10^6/ul (4.00-5.40); Red Cell Distribution Width 13 % (10.5-15); White Blood Count 6.8 10^3/ul (3.5-10.8)
--- NOTE | 2018-06-29 14:48 | PN ---
Progress Note - Progress Note Date of Service: 06/29/18 Note: BRIEF GASTROENTEROLOGY NOTE Patient underwent EGD on Saturday with several med/large marginal ulcers at anastomosis with thermal coagulation (Bicap probe) used to treat pigmented spot/ possible visible vessel in one of the ulcers. Interval Events: Patient received 1 unit of blood for Hct downtrending to 26-25 range (from 29). Today: VSS. One formed melenic stool in past 24 hours. No coffee-ground emesis. Patient complaining of some increased edema in arms and legs. Labs reviewed: Hct trend 25 > 1 unit > 29 > 30 > 28. BUN normal. h pylori Stool Ag negative. Discussed case with patient/patient's daughter. Patient had normal Hct bump after the transfusion (expect ~3 point increase in Hct for 1 unit of pRBC). I am not overly concerned about slight drift down in Hct of a point or two, particularly as she continues to look well clinically. Additionally, the Hct 30 is more of a bump from the transfusion then would be expected, so this may have been spurious. While it possible there may still be some mild oozing from the marginal ulcers, there does not appear to be significant ongoing bleeding. - Continue to monitor CBC -- can likely space out to every 12 hours. - Continue PPI IV BID - Can slowly advance diet to soft diet - Testing for H pylori (via biopsy or stool testing) in setting of active bleeding and PPI use can result in potential false negative testing. We can discuss pursuing H pylori breath testing in outpatient setting. - No plan for repeat inpatient EGD at this point unless acute clinical change. Patient will need repeat EGD in 8-12 weeks to reassess ulcers for healing. Pham Escoto MD
--- NOTE | 2018-06-29 16:07 | PN ---
Subjective Date of Service: 06/29/18 Interval History: Pt seen and examined. Meds and labs reviewed. Had a CP reported to be responsive to 1x NTG, SL. CC: Had black tarry stools this AM. ROS: Denied ROMANO/dizziness, F/C, N/V, CP, SOB, increased cough, sputum production , abd pain, constipation, dysuria, myalgias, arthralgias, throat pain, and new skin lesions. The rest of the 14 point ROS are unremarkable. PHYSICAL EXAM: GEN APPEARANCE: Awake, not in acute distress HEENT: NC/AT, PERRLA, moist oral mucosa, (-) throat erythema NECK: Soft, supple, (-) cervical LAD, (-)JVD HEART: S1S2 WNL, RRR, No MRG CHEST: CTA, BL, GAE, No W/R/R ABD: Soft, ND/NT, NABS 4x Q EXT: No C/C/E SKIN: Warm to touch PSYCH: No active psychosis, hallucinations, depression, SI/HI Objective Active Medications: Dorzolamide/Timolol (Cosopt (Nf)) 1 drop BOTH EYES BID@0700,1900 [facility]; Protocol Last Admin: 06/29/18 07:16 Dose: 1 drp Hydralazine HCl (Apresoline Iv*) 10 mg IV SLOW PU Q6H PRN PRN Reason: Hypertension Pantoprazole Sodium (Protonix Iv Bag*) 80 mg in 250 mls @ 25 mls/hr IVPB Q10H [facility] Last Admin: 06/29/18 05:36 Dose: 25 mls/hr Nitroglycerin (Nitroglycerin Tab 0.4 Mg*) 0.4 mg SL Q5M PRN PRN Reason: ANGINA Last Admin: 06/28/18 00:22 Dose: 0.4 mg Sucralfate (Carafate*) 1 gm PO ACHS [facility] Last Admin: 06/29/18 11:28 Dose: 1 gm Vital Signs - 8 hr 06/29/18 06/29/18 11:54 15:37 Temperature 98.6 F 98.8 F Pulse Rate 70 83 Respiratory 16 20 Rate Blood Pressure 153/55 143/51 (mmHg) O2 Sat by Pulse 98 98 Oximetry Oxygen Devices in Use Now: None Result Diagrams: 06/29/18 13:54 06/29/18 05:00 Microbiology and Other Data: Microbiology 06/25/18 10:53 Stool Occult Blood (MULU) - Final Stool Assess/Plan/Problems-Billing Assessment: - Patient Problems (1) GIB (gastrointestinal bleeding) Current Visit: Yes Status: Acute Code(s): K92.2 - GASTROINTESTINAL HEMORRHAGE, UNSPECIFIED SNOMED Code(s): 65657008 Comment: -Responded well with 1 unit PRBC yesterday; H&H stable and will repeat in AM given very slow bleed and pt requests frequency of blood draws be decreased -Appreciate re-eval by Dr. Zamudio -Will advance diet to full liquid and consider advancing to soft diet if no more melena and pt remains clinically stable with relatively stable H&H---per Dr. 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 Zamudio today -Avoid NSAIDs -H. pylori stool Ag (-) (2) HTN (hypertension) Current Visit: Yes Status: Acute Code(s): I10 - ESSENTIAL (PRIMARY) HYPERTENSION SNOMED Code(s): 65942450 Comment: -Improved control -Given likely small bleed rate as discussed above, will continue to hold PO meds , however, will continue on PRN Hydralazine (3) Electrolyte abnormality Current Visit: Yes Status: Acute Code(s): E87.8 - OTH DISORDERS OF ELECTROLYTE AND FLUID BALANCE, NEC SNOMED Code(s): 529925003 Comment: -Corrected -Will continue watchful waiting (4) DVT prophylaxis Current Visit: Yes Status: Acute Code(s): ZRS4024 - SNOMED Code(s): 069281485 Comment: -Continue SCDs -Pharmacologic DVTp contraindicated given GIB Status and Disposition: -As above
[2018-06-30] MEDS: Pantoprazole* 80 mg IN NS 80 MG/250 ML BAG IVPB SCH ×3 (01:29→20:54)
[2018-06-30 05:45] LABS: Hematocrit 28 % (35-47); Hemoglobin 9.6 g/dl (12.0-16.0); Mean Corpuscular HGB Conc 35 g/dl (31-36); Mean Corpuscular Hemoglobin 32 pg (27-31); Mean Corpuscular Volume 91 fL (80-97); Platelet Count 161 10^3/ul (150-450); Red Blood Count 3.03 10^6/ul (4.00-5.40); Red Cell Distribution Width 13 % (10.5-15); White Blood Count 6.7 10^3/ul (3.5-10.8)
[2018-06-30 06:04] LABS: EGFR Non-African American 103.6 (>60)
[2018-06-30] MEDS: Sucralfate TAB* 1 GM PO SCH ×4 (07:32→20:54)
[2018-06-30] MEDS: PTO: Dorzolamide/Timolol OPTH (NF) 10 ML BOT BOTH EYES SCH ×2 (07:32→19:29)
[2018-06-30] MEDS ORDERED: Potassium Phosphate IV* 15 MMOLE in NS 0.9% 250 ML* 250 ML IVPB ONE (10:00)
--- NOTE | 2018-06-30 16:33 | PN ---
Subjective Date of Service: 06/30/18 Interval History: Pt seen and examined. Meds and labs reviewed. Had a CP reported to be responsive to 1x NTG, SL. CC: Had black tarry stools this AM and PM yesterday. No BM yet this AM on my visit. Pts daughter at bedside concerned that her black tarry stools yesterday afternoon seems to be at higher volume and appeared to have clots ROS: Denied ROMANO/dizziness, F/C, N/V, CP, SOB, increased cough, sputum production , abd pain, constipation, dysuria, myalgias, arthralgias, throat pain, and new skin lesions. The rest of the 14 point ROS are unremarkable. PHYSICAL EXAM: GEN APPEARANCE: Awake, not in acute distress HEENT: NC/AT, PERRLA, moist oral mucosa, (-) throat erythema NECK: Soft, supple, (-) cervical LAD, (-)JVD HEART: S1S2 WNL, RRR, No MRG CHEST: CTA, BL, GAE, No W/R/R ABD: Soft, ND/NT, NABS 4x Q EXT: No C/C/E SKIN: Warm to touch PSYCH: No active psychosis, hallucinations, depression, SI/HI Objective Active Medications: Dorzolamide/Timolol (Cosopt (Nf)) 1 drop BOTH EYES BID@0700,1900 [facility]; Protocol Last Admin: 06/30/18 07:32 Dose: 1 drp Hydralazine HCl (Apresoline Iv*) 10 mg IV SLOW PU Q6H PRN PRN Reason: Hypertension Pantoprazole Sodium (Protonix Iv Bag*) 80 mg in 250 mls @ 25 mls/hr IVPB Q10H [facility] Last Admin: 06/30/18 11:53 Dose: 25 mls/hr Nitroglycerin (Nitroglycerin Tab 0.4 Mg*) 0.4 mg SL Q5M PRN PRN Reason: ANGINA Last Admin: 06/28/18 00:22 Dose: 0.4 mg Sucralfate (Carafate*) 1 gm PO ACHS [facility] Last Admin: 06/30/18 12:01 Dose: 1 gm Vital Signs - 8 hr 06/30/18 06/30/18 06/30/18 11:34 13:34 15:20 Temperature 99.3 F 98.0 F 98.0 F Pulse Rate 83 75 80 Respiratory 16 22 20 Rate Blood Pressure 170/69 140/46 145/51 (mmHg) O2 Sat by Pulse 99 99 100 Oximetry Oxygen Devices in Use Now: None Result Diagrams: 06/30/18 05:32 06/30/18 05:32 Microbiology and Other Data: Microbiology 06/25/18 10:53 Stool Occult Blood (MULU) - Final Stool Assess/Plan/Problems-Billing Assessment: - Patient Problems (1) GIB (gastrointestinal bleeding) Current Visit: Yes Status: Acute Code(s): K92.2 - GASTROINTESTINAL HEMORRHAGE, UNSPECIFIED SNOMED Code(s): 68098136 Comment: -Given pts daughter is concerned about second black tarry stools yesterday, they are afraid to de-escalate therapy at this time and further advancement of diet, w/c is reasonable and will defer -D/C Protonix gtt and advance diet in AM if H&H is stable and no more melena -Will repeat CBC at 2100 tonight -Responded well with 1 unit PRBC (06/28) -Appreciate re-eval by Dr. Zamudio -Will advance diet to full liquid and consider advancing to soft diet if no more melena and pt remains clinically stable with relatively stable H&H---per Dr. 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 Zamudio today -Avoid NSAIDs -H. pylori stool Ag (-) (2) HTN (hypertension) Current Visit: Yes Status: Acute Code(s): I10 - ESSENTIAL (PRIMARY) HYPERTENSION SNOMED Code(s): 94946459 Comment: -Improved control -Given likely small bleed rate as discussed above, will continue to hold PO meds , however, will continue on PRN Hydralazine (3) Electrolyte abnormality Current Visit: Yes Status: Acute Code(s): E87.8 - OTH DISORDERS OF ELECTROLYTE AND FLUID BALANCE, NEC SNOMED Code(s): 407182576 Comment: -Corrected -Will continue watchful waiting (4) DVT prophylaxis Current Visit: Yes Status: Acute Code(s): REB8343 - SNOMED Code(s): 445718763 Comment: -Continue SCDs -Pharmacologic DVTp contraindicated given GIB Status and Disposition: -As above
--- NOTE | 2018-06-30 21:28 | PN ---
Progress Note - Progress Note Date of Service: 06/30/18 Note: Per RN - no stools all day. No emesis. Drop in H/H. Hemodynamically stable. Will transfuse if she starts with tarry stools again. Otherwise, repeat H/H in AM
[2018-07-01 07:06] LABS: Hematocrit 27 % (35-47); Hemoglobin 9.5 g/dl (12.0-16.0); Mean Corpuscular HGB Conc 35 g/dl (31-36); Mean Corpuscular Hemoglobin 32 pg (27-31); Mean Corpuscular Volume 92 fL (80-97); Mean Platelet Volume 8.9 fL (7.4-10.4); Platelet Count 173 10^3/ul (150-450); Red Blood Count 2.94 10^6/ul (4.00-5.40); Red Cell Distribution Width 13 % (10.5-15); White Blood Count 5.6 10^3/ul (3.5-10.8)
[2018-07-01] MEDS: PTO: Dorzolamide/Timolol OPTH (NF) 10 ML BOT BOTH EYES SCH (07:22)
[2018-07-01] MEDS: Sucralfate TAB* 1 GM PO SCH ×3 (07:23→16:51)
[2018-07-01 08:11] LABS: EGFR Non-African American 112.9 (>60)
[2018-07-01] MEDS: Pantoprazole* 80 mg IN NS 80 MG/250 ML BAG IVPB SCH (08:19)
[2018-07-01 15:45] VITALS: BP 168/66
[2018-07-01] MEDS ORDERED: Omeprazole CAP* 20 MG PO SCH (21:00)
--- NOTE | 2018-07-02 15:51 | DS ---
CC: Dr. Escoto; Dr. Olinda Sotelo * DISCHARGE SUMMARY: DATE OF ADMISSION: 06/25/18 DATE OF DISCHARGE: 07/01/18 PRIMARY CARE PROVIDER: Dr. Olinda Sotelo. DISCHARGE DIAGNOSIS: Acute anemia due to acute upper gastrointestinal bleed secondary to gastric ulcers found at the anastomosis of previous gastric surgery. SECONDARY DIAGNOSES: Status post 1 unit of packed red blood cell transfusion during the hospital stay. The patient has a history of prior gastric surgery due to ulcers in the past. CONSULTATION DURING THE HOSPITAL STAY: Included Dr. Escoto from Gastroenterology. PROCEDURES PERFORMED: Included upper endoscopy performed by Dr. 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 Two anastomotic marginal ulcers. One ulcer was clean based and the other had a pigmented spot, which was treated with BICAP. No active bleeding at start or end of case. These ulcers are felt to be the source of the patient's bleeding. " HOSPITALIZATION COURSE: Mrs. Arthur is an 83-year-old female with history of gastric ulcer surgery remotely, who presented to the hospital complaining of melena and coffee-ground emesis. Patient was noted to have acute GI bleed. She was placed on intravenous Protonix drip. Dr. Escoto saw the patient in consultation. An upper endoscopy was performed on 06/25/18. That showed ulcers at the anastomosis site of old surgery. The patient was kept on intravenous proton pump inhibitor for another 3 days after the procedure was performed, then transitioned to home, more advanced diet and omeprazole twice a day. The patient is being discharged today to home with recommendation to continue soft diet for approximately 5 days and then advance as tolerated. She is being started on omeprazole twice a day. MEDICATIONS AT DISCHARGE: Include: 1. Cosopt eye drops, 1 drop both eyes daily. 2. Lisinopril 20 mg daily. 3. Corgard/nadolol 40 mg daily. 4. Hydrochlorothiazide 25 mg daily. 5. Omeprazole 20 mg b.i.d. LABORATORY DATA AND STUDIES PERFORMED DURING THE HOSPITAL STAY: Included on , white blood cell count of 5.6, hemoglobin 9.5, hematocrit of 27, and platelets of 173. Sodium was 143, potassium 3.4, chloride 114, carbon dioxide 25, BUN 5, creatinine 0.52. Liver function tests were unremarkable. H. pylori stool antigen was negative. PHYSICAL EXAM AT THE TIME OF DISCHARGE: Blood pressure of 168/66, heart rate of 73 and regular, respiratory rate 18, oxygen saturation 99% on room air, temperature 97.9. General: The patient is a very pleasant 83-year-old female who is Indonesian with poor Serbian knowledge. The patient's daughter is in the room and she is translating. The patient is in no acute distress. She is awake , alert, and oriented x3. HEENT: Head atraumatic, normocephalic. Eyes: Pupils are equal and reactive to light and accommodation. Oropharynx clear. Mucosa moist. Neck: Supple. No JVD. No bruit bilaterally. Cardiovascular: Regular rate and rhythm. No murmur. Respiratory: Clear to auscultation bilaterally. Abdomen: Soft, nontender. Bowel sounds present in all 4 quadrants. Extremities: There is +1 pitting pedal edema, which is chronic. Pulses +2 bilaterally. There is no clubbing or cyanosis. Neuro Evaluation: Speech clear. Cranial nerves II through XII grossly intact. Motor strength is 5/5 bilaterally. At discharge, the patient is recommended to follow up with primary care provider with scheduled appointment on 07/04/18. Dr. Escoto's office is going to call patient with a followup appointment. The patient is recommended to have repeat endoscopy in approximately 8 to 12 weeks. Please note that this is a short summary of the patient's hospitalization. Please refer to further medical records for details. TIME SPENT: Approximately 35 minutes was spent on patient's discharge. [id number]/[facility] #: [id number] MTDD
== END 2018-07-01 17:45 | disposition home or self-care (01) | DRG 811 ==
LOC: ED 09:49 → OBSVTOIN 13:09 → MEDTELE 13:09
PROVIDERS: ADMIT Hospitalist; ATTEND Internal Medicine
PROC: 0W3P8ZZ Control Bleeding in Gastrointestinal Tract, Via Natural or Artificial Opening Endoscopic (ICD-10-PCS; principal; 2018-06-25)
PROC: 30233N1 Transfusion of Nonautologous Red Blood Cells into Peripheral Vein, Percutaneous Approach (ICD-10-PCS; 2018-06-28)
DX: D62 Acute posthemorrhagic anemia (principal); K25.4 Chronic or unspecified gastric ulcer with hemorrhage; E83.42 Hypomagnesemia; E87.6 Hypokalemia; I10 Essential (primary) hypertension; R07.9 Chest pain, unspecified; H40.9 Unspecified glaucoma; Z79.899 Other long term (current) drug therapy; Z88.8 Allergy status to other drugs, medicaments and biological substances; Z80.6 Family history of leukemia; Z98.84 Bariatric surgery status
CPT/HCPCS: 36415; 71045; 80048; 80053; 82272; 83605; 83690; 83735; 84100; 84443; 84484; 85014; 85018; 85025; 85027; 85610; 85730; 86850; 86870; 86880; 86900; 86901; 86905; 86922; 87338; 93005; 99156; 99157; 99284; A9270-GY; J0360; J0610; J1610; J2250; J3010; J3475; J3480; P9040

== ENCOUNTER 2018-09-19 07:12 | Emergency (ER) | payer MEDICARE, MEDICAID ==
[2018-09-19 07:25] VITALS: BP 183/76
--- NOTE | 2018-09-19 07:59 | UC ---
Complaint Female HPI - HPI Summary HPI Summary: DYSURIA, FREQUENCY AND URGENCY FOR ABOUT 5 DAYS. NO FEVER, NAUSEA OR BACK PAIN. ADMITS SHE DOESN'T DRINK MUCH WATER. - History Of Current Complaint Chief Complaint: UCGU Stated Complaint: BLOOD IN URINE Time Seen by Provider: 09/19/18 07:22 Hx Obtained From: Patient Onset/Duration: Gradual Onset, Lasting Days, Still Present Severity Initially: Moderate Severity Currently: Moderate Pain Intensity: 3 Pain Scale Used: 0-10 Numeric Character: Burning Aggravating Factor(s): Urination Associated Signs And Symptoms: Negative: Fever, Back Pain, Vaginal Bleeding/ Discharge, Nausea - Allergies/Home Medications Allergies/Adverse Reactions: Allergies Allergy/AdvReac Type Severity Reaction Status Date / Time brimonidine [From Combigan] Allergy Severe Eyes Verified 09/19/18 07:25 Itchy/Swollen/Red/Watery ciprofloxacin [From Cipro] Allergy Severe GI Upset Verified 06/25/18 09:57 timolol [From Combigan] Allergy Severe Eyes Verified 09/19/18 07:25 Itchy/Swollen/Red/Watery PMH/Surg Hx/FS Hx/Imm Hx Cardiovascular History: Hypertension - Surgical History Surgical History: Yes Surgery Procedure, Year, and Place: VEIN STRIPPING, HYSTERECTOMY, LASER EYE, LEFT LEG INFECTION - Family History Known Family History: Positive: Non-Contributory Negative: Blood Disorder - Social History Alcohol Use: None Substance Use Type: None Smoking Status (MU): Never Smoked Tobacco - Immunization History Most Recent Influenza Vaccination: 2011 Most Recent Pneumonia Vaccination: unknown Review of Systems All Other Systems Reviewed And Are Negative: Yes Constitutional: Positive: Negative Respiratory: Positive: Negative Cardiovascular: Positive: Negative Gastrointestinal: Positive: Negative Genitourinary: Positive: Dysuria, Frequency, Urgency Physical Exam Triage Information Reviewed: Yes Appearance: Well-Appearing, No Pain Distress, Well-Nourished Vital Signs: Initial Vital Signs Temp 98.3 F 09/19/18 07:15 Pulse 58 09/19/18 07:15 Resp 16 09/19/18 07:15 BP 183/76 09/19/18 07:15 Pulse Ox 100 09/19/18 07:15 Laboratory Tests 09/19/18 07:24 POC Urine Color Yellow POC Urine Clarity Clear POC Urine pH 5.5 POC Ur Specif [place] >= 1.030 POC Urine Protein Negative POC Ur Glucose (UA) Negative POC Urine Ketones Negative POC Urine Blood Trace-intact A POC Urine Nitrite Negative POC Urine Bilirubin Negative POC Urine Urobilinogen 0.2 POC U Leukocyte Esteras 1+ A Vital Signs Reviewed: Yes Eyes: Positive: Conjunctiva Clear ENT: Positive: Hearing grossly normal Neck: Positive: Supple Respiratory: Positive: No respiratory distress, No accessory muscle use Cardiovascular: Positive: Pulses Normal Abdomen Description: Positive: Nontender, Soft Musculoskeletal: Positive: No Edema Neurological: Positive: Alert Psychological: Positive: Age Appropriate Behavior Skin: Negative: Rashes Complaint Female Dx - Differential Dx/Diagnosis Provider Diagnosis: UTI (urinary tract infection) Discharge - Sign-Out/Discharge Documenting (check all that apply): Patient Departure All imaging exams completed and their final reports reviewed: No Studies - Discharge Plan Condition: Stable Disposition: HOME Prescriptions: Phenazopyridine TAB* [Pyridium TAB*] 200 mg PO TID #6 tab Sulfamethox/Trimethoprim DS* [Bactrim DS 800/160 TAB*] 1 tab PO BID #10 tab Patient Education Materials: Urinary Tract Infection in Women (ED) Referrals: Olinda Sotelo MD [Primary Care Provider] - If Needed - Billing Disposition and Condition Condition: STABLE Disposition: Home
== END 2018-09-19 07:50 | disposition home or self-care (01) ==
LOC: UCEAST 07:12
DX: N39.0 Urinary tract infection, site not specified (principal); I10 Essential (primary) hypertension; Z90.710 Acquired absence of both cervix and uterus; Z88.8 Allergy status to other drugs, medicaments and biological substances; Z88.1 Allergy status to other antibiotic agents
CPT/HCPCS: 81003; 87086; 99212; G0463

== ENCOUNTER 2019-09-16 13:35 | Emergency (ER) | payer MEDICARE, MEDICAID ==
--- OUTSIDE RECORDS SUMMARY | 2019-09-16 13:41 | XMS REPORT | Continuity of Care Document ---
:1935 External Reference #:[id number] Author Name Nikos Camacho N.P. (transmitted by agent of provider Jayla Rasheed) Address [address], [place] [address] Care Team Providers Name Role Phone Olinda Sotelo M.D. - Family Medicine Care Team Information Behavioral Instructor Problems Active Problems Provider Date Essential hypertension Olinda Sotelo MD Onset: 07/04/2018 Melena Kacie Cohen NP Onset: 06/25/2018 Hypokalemia Kacie Cohen NP Onset: 06/25/2018 Disorder of magnesium metabolism Kacie Cohen NP Onset: 06/25/2018 Gastrointestinal hemorrhage Kacie Cohen NP Onset: 06/25/2018 Disorder of fluid AND/OR electrolyte Darryl Oneil MD Onset: 06/27 Chronic gastric ulcer with hemorrhage Macrina Busch M.D. Onset: 07/01/2018 but without obstruction Acute posthemorrhagic anemia Macrina Busch M.D. Onset: 07/01/2018 Social History Type Date Description Comments Sex Unknown Tobacco Use Start: Unknown Never Smoked Cigarettes Smoking Status Reviewed: 08/10/19 Never Smoked Cigarettes ETOH Use Denies alcohol use Tobacco Use Start: Unknown Patient has never smoked Recreational Drug Use Never Used Drugs Exercise Type/Frequency Does not exercise Allergies, Adverse Reactions, Alerts Active Allergies Reaction Severity Comments Date Cipro Moderate 07/04/2018 Combigan Moderate 07/04/2018 Inactive Allergies NKDA 07/04/2018 Medications Active Medications SIG Qnty Indications Ordering Date Provider Quad Cane 1 cane for 1units Z91.81 Olinda Sotelo, Misc ambulation 4 9 prong Lisinopril Take One Tablet 90tabs I10 Olinda Bustillonte, 20mg Tablets By Mouth Every MD 9 Day For High Blood Pressure Proctosol HC apply to 28.350gm Olinda Sotelo, 2.5% Cream affected area MD Mckay three times daily Walker Basket rollator walker 1units Z91.81 Olinda Ashleigh, Misc with a seat and MD Davis basket to use daily during ambulation Depend Silhouette Briefs use daily, 120units N39.46 Olinda Ashleigh, For Women Large/X-Large change 4x/day MD Davis Max Absorb Misc Omeprazole Take One Capsule Foor-Pessin, 20mg Capsules DR By Mouth daily Miguel Nath 0 Dorzolamide HCL/Timolol Instill 1 Drop Unknown Maleate Into Both Eyes 0 22.3-6.8mg/ml Solution Two Times A Day as Directed Nadolol take one tablet 30tabs Olinda Sotelo, 40mg Tablets by mouth every MD 0 day Fish Oil 1 by mouth twice Unknown 500mg Capsules a day 0 Vitamin C ER 1 tab by mouth Unknown 500mg Tablets ER as needed 0 Hydrochlorothiazide 1 by mouth every Unknown 25mg day 0 Tablets Immunizations Description No Information Available Vital Signs Date Vital Result Comment 08/10/2019 7:59am Weight 163.00 lb Heart Rate 66 /min BP Systolic 142 mmHg BP Diastolic 78 mmHg 06/15/2019 10:12am Weight 165.00 lb Heart Rate 69 /min BP Systolic Sitting 158 mmHg BP Diastolic Sitting 86 mmHg O2 % BldC Oximetry 98 % Results Test Acquired Date Facility Test Result H/L Range Note Urinalysis Profile 06/19/2019 [facility] Urine Color Yellow [address] [place] [address] [phone] Urine Appearance Clear Urine Specific [place] 1.019 Normal 1.010-1.030 Urine pH 5.0 Normal 5-9 Urine Urobilinogen Negative Negative Urine Ketones Negative Negative Urine Protein Negative Negative Urine Leukocytes Negative Negative Urine Blood Negative Negative Urine Nitrite Negative Negative Urine Bilirubin Negative Negative Urine Glucose Negative Negative Urine Culture And 06/19/2019 [facility] Urine SEE RESULT [address] [place] [address] [phone] CBC Auto Diff 06/15/2019 [facility] White Blood 5.9 10^3/uL Normal 3.5-[address] Count 0.8 [place] [address] [phone] Red Blood Count 5.18 10^6/uL High 3.70-4.87 Hemoglobin 15.9 g/dL Normal 12.0-16.0 Hematocrit 47 % Normal 35-47 Mean Corpuscular Volume 90 fL Normal 80-97 Mean Corpuscular Hemoglobin 31 pg Normal 27-31 Mean Corpuscular HGB Conc 34 g/dL Normal 31-36 Red Cell Distribution Width 13 % Normal 10-15 Platelet Count 186 10^3/uL Normal 150-450 Mean Platelet Volume 9.1 fL Normal 7.4-10.4 Abs Neutrophils 3.6 10^3/uL Normal 1.5-7.7 Abs Lymphocytes 1.3 10^3/uL Normal 1.0-4.8 Abs Monocytes 0.7 10^3/uL Normal 0-0.8 Abs Eosinophils 0.2 10^3/uL Normal 0-0.6 Abs Basophils 0.0 10^3/uL Normal 0-0.2 Abs Nucleated RBC 0.0 10^3/uL Granulocyte % 61.4 % Lymphocyte % 21.8 % Monocyte % 11.9 % Eosinophil % 4.2 % Basophil % 0.7 % Nucleated Red Blood Cells % 0.0 Urine Culture And 06/15/2019 [facility] Urine SEE RESULT [address] [place] [address] [phone] Laboratory test 06/15/2019 [facility] Vitamin B12 409 pg/mL Normal 180-9 [address] [place] [address] [phone] Miscellaneous Test See Comment 5 Ua Routine 05/04/2019 Clinical Cytopathologist In House Ua Specific [place] 1.030 Ua PH 5 Ua Color light orange Ua Appera Clear Ua WBC Trace Ua Protein - Ua Glucose - Ua Ketones - Ua Bilirubin - Ua Urobilinogen - Ua Nitrite - Ua Occult Blood trace Laboratory test 02/25/2019 [facility] Clotest SEE RESULT BELOW [address] [place] [address] [phone] 1 [id number] 2 SEE RESULT BELOW Name: MARTINA ARTHUR : [address]: Deb Cole MD Acct: [id number] Unit: [id number] AGE: 84 Location: [facility] Re06/19/19 SEX: F Status: REG REF SPEC: [id number] JOE: 06/19/19 [facility] DR: Deb Cole MD REQ: [id number] RECD: 06/19/19 STATUS: COMP _ SOURCE: URINE SPDESC: ORDERED: Urine Culture COMMENTS: [id number] QUERIES: Urine Source: Random Procedure Result Reported Site Urine Culture Final 06/21/19- 828 ML No growth of clinically significant organisms * ML - Main Lab . END OF REPORT DEPARTMENT OF PATHOLOGY, [address] [place] [address] Gabe Morales M.D. Director [facility] # [id number] 3 SEE RESULT BELOW Name: MARTINA ARTHUR : [address]: Olinda Sotelo MD Acct: [id number] Unit: [id number] AGE: 84 Location: [facility] Re06/15/19 SEX: F Status: REG REF SPEC: [id number] JOE: 06/15/19-[address]: Olinda Sotelo MD REQ: [id number] RECD: 06/15/19 STATUS: COMP _ SOURCE: URINE SPDESC: ORDERED: Urine Culture COMMENTS: NO MURRAY TOP FOR MICRO, YELLOW TOP PUT ON URINAYSIS MACHINE EMAILED TO ELIZABETH HERRON by [id number] at 1621 on 06/15/19. Verbal to GARCIA LANDA URINE FOUND by at 0819 on 06/16/19. Y Procedure Result Reported Site Urine Culture Final 06/16/19- 1606 ML No growth of clinically significant organisms * ML - Main Lab . END OF REPORT DEPARTMENT OF PATHOLOGY, [address] [place] [address] Gabe Morales M.D. Director [facility] # [id number] 4 Normal Range 180 to 914 Indeterminate Range 145 to 180 Deficient Range <145 5 Test Result Flag Unit RefValue Syphilis Total Ab w/ Reflex, Nonreactive S No serologic evidence of infection with T. pallidum (syphilis). Repeat testing may be considered in patients with suspected acute or primary syphilis in 2-4 weeks. REFERENCE VALUE Nonreactive Test Performed by: [facility] [employer] [facility] [address] [place] [address] Car Chaser: Thanh Marsh M.D. Ph.D.; IA# [id number] 6 SEE RESULT BELOW Name: MARTINA ARTHUR : [address]: Pham Escoto MD Acct: [id number] Unit: [id number] AGE: 83 Location: ENDO Re02/25/19 SEX: F Status: REG REF SPEC: [id number] JOE: 02/25/19-[address]: Pham Zamudio MD REQ: [id number] RECD: 02/25/196 STATUS: COMP OTHR DR: Olinda Sotelo MD _ SOURCE: GAS ANTRUM SPDESC: ORDERED: Clotest Procedure Result Reported Site Clotest Final 02/26/19- 722 ML Clotest Negative * ML - Main Lab . END OF REPORT DEPARTMENT OF PATHOLOGY, [address] [place] [address] Gabe Morales M.D. Director [facility] # [id number] Procedures Date Code Description Status 05/04/2019 15390 EKG Tracing & Interpretation Completed Medical Devices Description No Information Available Encounters Type Date Location Provider Dx Diagnosis Office Visit 05/04/2019 [facility] Olinda oStelo MD R07.82 Intercostal pain 1:40p Medicine - [facility] S70.322A Blister (nonthermal), left thigh, initial encounter R30.0 Dysuria Office Visit 02/27/2019 4:40p Carlos Sotelo MD H61.21 Impacted Medicine - Ccm[facility] cerumen, right ear Assessments Date Code Description Provider 08/10/2019 R41.3 Other amnesia Nikos Camacho, N.P. 08/10/2019 R13.10 Dysphagia, unspecified Nikos Camacho, N.P. 08/10/2019 R07.9 Chest pain, unspecified Nikos Camacho, N.P. 06/15/2019 Z00.00 Encounter for general adult medical Olinda Sotelo MD examination without abnormal findings 06/15/2019 R42 Dizziness and giddiness Olinda Sotelo MD 06/15/2019 G31.84 Mild cognitive impairment, so stated Olinda Sotelo MD 06/15/2019 Z91.81 History of falling Olinda Sotelo MD 06/15/2019 I10 Essential (primary) hypertension Olinda Sotelo MD 06/15/2019 D64.9 Anemia, unspecified Olinda Sotelo MD 06/15/2019 R30.0 Dysuria Olinda Sotelo MD 05/04/2019 R07.82 Intercostal pain Olinda Sotelo MD 05/04/2019 S70.322A Blister (nonthermal), left thigh, initial Olinda Sotelo MD encounter 05/04/2019 R30.0 Dysuria Olinda Sotelo MD 02/27/2019 H61.21 Impacted cerumen, right ear Olinda Sotelo MD Plan of Treatment Future Appointment(s):09/28/2019 12:00 pm - Dexter Vo M.D. at [facility]09/16/2019 8:50 am - Silvana Posada M.D. at [facility] Internal Medicine - [facility]06/17/2020 2:20 pm - Olinda Sotelo MD at [facility] Internal Medicine - [facility]08/10/2019 - Nikos Camacho, N.P.R41.3 Other amnesiaNew Xrays: MRI Brain W/O, Ordered: 08/10/19Follow up:6-[address] voR13.10 Dysphagia , unspecifiedNew Therapy:Speech BfilwhdM20.9 Chest pain, unspecifiedRecommendations:please call your pcp to discuss If this occurs please go to the ER Functional Status Description No Information Available Mental Status Description No Information Available Referrals Refer to Reason for Referral Status Appt Date Paul Solitario MD pt with rapidly declining short term memory and Sent word finding problems in past 6 months. She has even stopped recognizing family member at times. CT and labs pending [address] [place] [address] [phone]
--- OUTSIDE RECORDS SUMMARY | 2019-09-16 13:41 | XMS REPORT | Continuity of Care Document ---
:1935 External Reference #:[id number] Author Name Aida Craig MD (transmitted by agent of provider Kayla Landa) Address [address] [facility], [place] [address] Care Team Providers Name Role Phone Giovanni Fatima M.D. - Family Medicine Care Team Information [employer] Technician [phone] Problems Active Problems Provider Date Essential hypertension Giovanni Fatima MD Onset: 07/04/2018 Melena Kacie Cohen NP [...] Unknown Never Smoked Cigarettes Smoking Status Reviewed: 08/14/19 Never Smoked Cigarettes ETOH Use Denies alcohol use Tobacco Use Start: Unknown Patient has never smoked Recreational Drug Use Never Used Drugs Exercise Type/Frequency Does not exercise Allergies, Adverse Reactions, Alerts Active Allergies Reaction Severity Comments Date Cipro Moderate 07/04/2018 Combigan Moderate 07/04/2018 Inactive Allergies NKDA 07/04/2018 Medications Active Medications SIG Qnty Indications Ordering Date Provider Quad Cane 1 cane for 1units Z91.81 Giovanni Fatima, Misc ambulation 4 MD 9 prong Lisinopril Take One Tablet 90tabs I10 Giovanni Fatima, 20mg Tablets By Mouth Every 9 Day For High Blood Pressure Proctosol HC apply to 28.350gm Giovanni Ashleigh, 2.5% Cream affected area MD Mckay three times daily Walker Basket rollator walker 1units Z91.81 Giovanni Ashleigh, Misc with a seat and MD Davis basket to use daily during ambulation Depend Silhouette Briefs use daily, 120units N39.46 Giovanni Ashleigh, For Women Large/X-Large change 4x/day MD Davis Max Absorb Misc Omeprazole Take One Capsule Foor-Pessin, 20mg Capsules DR By Mouth daily Miguel Nath 0 Dorzolamide HCL/Timolol Instill 1 Drop Unknown Maleate Into Both Eyes 0 22.3-6.8mg/ml Solution Two Times A Day as Directed Nadolol take one tablet 30tabs Aida 40mg Tablets by mouth every MD Rafa 0 day Fish Oil 1 by mouth twice Unknown 500mg Capsules a day 0 Vitamin C ER 1 tab by mouth Unknown 500mg Tablets ER as needed 0 Hydrochlorothiazide 1 by mouth every Unknown 25mg day 0 Tablets Immunizations Description No Information Available Vital Signs Date Vital Result Comment 08/14/2019 9:25am Weight 163.00 lb Heart Rate 65 /min BP Systolic Sitting 141 mmHg BP Diastolic Sitting 77 mmHg O2 % BldC Oximetry 97 % 08/10/2019 7:59am Weight 163.00 lb Heart Rate 66 /min BP Systolic 142 mmHg BP Diastolic 78 mmHg Results Test Acquired Date Facility Test Result H/L Range Note Comp Metabolic 08/10/2019 [facility] Sodium 142 mmol/L Normal 135-[address] [place] [address] [phone] Potassium 4.0 mmol/L Normal 3.5-5.0 Chloride 103 mmol/L Normal 101-111 Co2 Carbon Dioxide 31 mmol/L Normal 22-32 Anion Gap 8 mmol/L Normal 2-11 Glucose 110 mg/dL High 70-100 Blood Urea Nitrogen 30 mg/dL High 6-24 Creatinine 0.84 mg/dL Normal 0.51-0.95 BUN/Creatinine Ratio 35.7 High 8-20 Calcium 10.2 mg/dL Normal 8.6-10.3 Total Protein 7.4 g/dL Normal 6.4-8.9 Albumin 4.2 g/dL Normal 3.2-5.2 Globulin 3.2 g/dL Normal 2-4 Albumin/Globulin Ratio 1.3 Normal 1-3 Total Bilirubin 1.30 mg/dL High 0.2-1.0 Alkaline Phosphatase 48 U/L Normal 34-104 Alt 23 U/L Normal 7-52 Ast 22 U/L Normal 13-39 Egfr Non- 64.8 >60 Egfr 78.3 >60 1 CBC Auto 08/10/2019 [facility] White Blood 8.4 10^3/uL Normal 3.5-10.[address] Count [place], [place] [id number] [phone] Red Blood Count 5.28 10^6/uL High 3.70-4.87 Hemoglobin 16.6 g/dL High 12.0-16.0 Hematocrit 48 % High 35-47 Mean Corpuscular Volume 90 fL Normal 80-97 Mean Corpuscular Hemoglobin 31 pg Normal 27-31 Mean Corpuscular HGB Conc 35 g/dL Normal 31-36 Red Cell Distribution Width 13 % Normal 10-15 Platelet Count 222 10^3/uL Normal 150-450 Mean Platelet Volume 9.5 fL Normal 7.4-10.4 Abs Neutrophils 6.2 10^3/uL Normal 1.5-7.7 Abs Lymphocytes 1.3 10^3/uL Normal 1.0-4.8 Abs Monocytes 0.8 10^3/uL Normal 0-0.8 Abs Eosinophils 0.1 10^3/uL Normal 0-0.6 Abs Basophils 0.0 10^3/uL Normal 0-0.2 Abs Nucleated RBC 0.0 10^3/uL Granulocyte % 73.6 % Lymphocyte % 15.3 % Monocyte % 10.0 % Eosinophil % 0.6 % Basophil % 0.5 % Nucleated Red Blood Cells % 0.0 Laboratory 08/10/2019 [facility] TSH (Thyroid 2.08 Normal 0.34 -5.60 2 test finding [address] Stim Horm) mcIU/[place] [address] [phone] Free T4 (Free Thyroxine) 1.18 ng/dL High 0.61-1.12 3 Urinalysis Profile 06/19/2019 [facility] Urine Color Yellow [address] [place] [address] [phone] Urine Appearance Clear Urine Specific Blanco 1.019 Normal 1.010-1.030 Urine pH 5.0 Normal 5-9 Urine Urobilinogen Negative Negative Urine Ketones Negative Negative Urine Protein Negative Negative Urine Leukocytes Negative Negative Urine Blood Negative Negative Urine Nitrite Negative Negative Urine Bilirubin Negative Negative Urine Glucose Negative Negative Urine Culture And 06/19/2019 [facility] Urine SEE RESULT [address] [place] [address] [phone] CBC Auto Diff 06/15/2019 [facility] White Blood 5.9 10^3/uL Normal 3.5-[address] Count 0.8 [place] [address] [phone] Red Blood Count 5.18 10^6/uL High 3.70-4.87 [...] Cells % 0.0 Urine Culture And 06/15/2019 [facility] Urine SEE RESULT [address] [place] [address] [phone] Laboratory test 06/15/2019 [facility] Vitamin B12 409 pg/mL Normal 180-9 [address] [place] [address] [phone] Miscellaneous Test See Comment 8 Ua Routine 05/04/2019 [facility] In House Ua Specific Blanco 1.030 Ua PH 5 Ua Color light orange Ua Appera Clear Ua WBC Trace Ua Protein - Ua Glucose - Ua Ketones - Ua Bilirubin - Ua Urobilinogen - Ua Nitrite - Ua Occult Blood trace Laboratory test 02/25/2019 [facility] Clotest SEE RESULT BELOW [address] [place] [address] [phone] 1 Because ethnic data is not always readily available, this report includes an eGFR for both -Americans and non- Americans. The National Kidney Disease Education Program (NKDEP) does not endorse the use of the MDRD equation for patients that are not between the ages of 18 and 70, are , have extremes of body size, muscle mass, or nutritional status, or are non- or non-. According to the National Kidney Foundation, irrespective of diagnosis, the stage of the disease is based on the level of kidney function: Stage Description GFR(mL/min/1.73 m(2)) 1 Kidney damage with normal or decreased GFR 90 2 Kidney damage with mild decrease in GFR 60-89 3 Moderate decrease in GFR 30-59 4 Severe decrease in GFR 15-29 5 Kidney failure <15 (or dialysis) 2 Copy Result to: GIOVANNI FATIMA ([id number]) 3 Copy Result to: GIOVANNI FATIMA ([id number]) 4 [id number] SEE RESULT BELOW Name: MARTINA ARTHUR : [address]: Deb Cole MD Acct: [id number] Unit: [id number] AGE: 84 Location: [facility] Re06/19/19 SEX: F Status: REG REF SPEC: [id number] JOE: 06/19/19-[address]: Deb Cole MD REQ: [id number] RECD: 06/19/19 STATUS: COMP _ SOURCE: URINE SPDESC: ORDERED: Urine Culture COMMENTS: [id number] QUERIES: Urine Source: Random Procedure Result Reported Site Urine Culture Final 06/21/19- 0829 ML No growth of clinically significant organisms * ML - Main Lab . END OF REPORT DEPARTMENT OF PATHOLOGY, [address] [place] [address] Gabe Morales M.D. Director [facility] # [id number] 6 SEE RESULT BELOW Name: MARTINA ARTHUR : [address]: Giovanni Fatima MD Acct: [id number] Unit: [id number] AGE: 84 Location: [facility] Re06/15/19 SEX: F Status: REG REF SPEC: [id number] JOE: 06/15/191202 [facility] DR: Giovanni Fatima MD REQ: [id number] RECD: 06/15/19 STATUS: COMP _ SOURCE: URINE SPDESC: ORDERED: Urine Culture COMMENTS: NO MURRAY TOP FOR MICRO, YELLOW TOP PUT ON URINAYSIS MACHINE EMAILED TO ELIZABETH HERRON by [id number] at 1621 on 06/15/19. Verbal to GARCIA LANDA URINE FOUND by [id number] at 0819 on 06/16/19. Y Procedure Result Reported Site Urine Culture Final 06/16/19- 1606 ML No growth of clinically significant organisms * ML - Main Lab . END OF REPORT DEPARTMENT OF PATHOLOGY, [address] [place] [address] Gabe Morales M.D. Director [facility] # [id number] 7 Normal Range 180 to 914 Indeterminate Range 145 to 180 Deficient Range <145 8 Test Result Flag Unit RefValue Syphilis Total Ab w/ Reflex, Nonreactive S No serologic evidence of infection with T. pallidum (syphilis). Repeat testing may be considered in patients with suspected acute or primary syphilis in 2-4 weeks. REFERENCE VALUE Nonreactive Test Performed by: [facility] [address] [place] [address] Dog Groomer: Thanh Marsh M.D. Ph.D.; CLIA# [id number] 9 SEE RESULT BELOW Name: MARTINA ARTHUR : [address]: Pham Escoto MD Acct: [id number] Unit: [id number] AGE: 83 Location: ENDO Re02/25/19 SEX: F Status: REG REF SPEC: [id number] JOE: 02/25/19-[address]: Pham Zamudio MD REQ: [id number] RECD: 02/25/195 STATUS: REFUGIO FARRAR DR: Giovanni Fatima MD _ SOURCE: GAS ANTRUM SPDESC: ORDERED: Clotest Procedure Result Reported Site Clotest Final 02/26/19- 722 ML Clotest Negative * ML - Main Lab . END OF REPORT DEPARTMENT OF PATHOLOGY, [address] [place] [address] Gabe Morales M.D. Director [facility] # [id number] Procedures Date Code Description Status 05/04/2019 98723 EKG Tracing & Interpretation Completed Medical Devices Description No Information Available Encounters Type Date Location Provider Dx Diagnosis Office Visit 05/04/2019 [facility] Giovanni Fatima MD R07.82 Intercostal pain 1:40p Medicine - Ccmob S70.322A Blister (nonthermal), left thigh, initial encounter R30.0 Dysuria Office Visit 02/27/2019 4:40p [facility] Giovanni Fatima MD H61.21 Impacted Medicine - Ccmob cerumen, right ear Assessments Date Code Description Provider 08/14/2019 R07.9 Chest pain, unspecified Aida Craig MD 08/14/2019 G31.84 Mild cognitive impairment, so stated Aida Craig MD 08/10/2019 R41.3 Other amnesia Nikos Camacho, N.P. 08/10/2019 R13.10 Dysphagia, unspecified Nikos Camacho, N.P. 08/10/2019 R07.9 Chest pain, unspecified Nikos Camacho, N.P. 06/15/2019 Z00.00 Encounter for general adult medical Giovanni Fatima MD examination without abnormal findings 06/15/2019 R42 Dizziness and giddiness Giovanni Fatima MD 06/15/2019 G31.84 Mild cognitive impairment, so stated Giovanni Fatima MD 06/15/2019 Z91.81 History of falling Giovanni Fatima MD 06/15/2019 I10 Essential (primary) hypertension Giovanni Fatima MD 06/15/2019 D64.9 Anemia, unspecified Giovanni Fatima MD 06/15/2019 R30.0 Dysuria Giovanni Fatima MD 05/04/2019 R07.82 Intercostal pain Giovanni Fatima MD 05/04/2019 S70.322A Blister (nonthermal), left thigh, initial Giovanni Fatima MD encounter 05/04/2019 R30.0 Dysuria Giovanni Fatima MD 02/27/2019 H61.21 Impacted cerumen, right ear Giovanni Fatima MD Plan of Treatment Future Appointment(s):09/28/2019 12:00 pm - Dexter Quiroz M.D. at [facility]09/16/2019 8:50 am - Silvana Posada M.D. at [facility]06/17/2020 2:20 pm - Giovanni Fatima MD at [facility] - [facility]08/14/2019 - Aida Craig, MDR07.9 Chest pain, unspecifiedFollow up:Needs OMAR from [address] [address] V15.84 Mild cognitive impairment, so stated Functional Status Description No Information Available Mental Status Description No Information Available Referrals Refer to Reason for Referral Status Appt Date Paul Solitario MD pt with rapidly declining short term memory and Sent word finding problems in past 6 months. She has even stopped recognizing family member at times. CT and labs pending [address] [facility] [place] [address] [place] [address] [phone]
[2019-09-16 15:35] VITALS: BP 158/77
--- NOTE | 2019-09-16 17:29 | UC ---
Skin Complaint HPI - HPI Summary HPI Summary: 6 DAYS OF RIGHT MEDIAL ANKLE REDNESS, SWELLING AND DISCOMFORT. SKIN IS PEELING. NO DRAINAGE. NO FEVER. DAUGHTER STATES THEY'VE BEEN USING IODINE ON THE AREA. DENIES ANY TRAUMA OR INJURY. - History of Current Complaint Chief Complaint: UCSkin Time Seen by Provider: 09/16/19 16:15 Stated Complaint: RASH/SORE Hx Obtained From: Patient, Family/Detasseler - DAUGHTER Onset/Duration: Gradual Onset, Lasting Days, Still Present Timing: Constant Onset Severity: Moderate Current Severity: Moderate Pain Intensity: 5 Pain Scale Used: 0-10 Numeric Location: Discrete - RIGHT MEDIAL ANKLE Character: Swelling, Pain, Redness Aggravating Factor(s): Touch Alleviating Factor(s): Nothing Associated Signs & Symptoms: Positive: Rash, Tenderness, Joint Swelling. Negative: Fever - Allergy/Home Medications Allergies/Adverse Reactions: Allergies Allergy/AdvReac Type Severity Reaction Status Date / Time brimonidine [From Combigan] Allergy Severe Eyes Verified 09/16/19 15:23 Itchy/Swollen/Red/Watery ciprofloxacin [From Cipro] Allergy Severe GI Upset Verified 09/16/19 15:23 timolol [From Combigan] Allergy Severe Eyes Verified 09/16/19 15:23 Itchy/Swollen/Red/Watery PMH/Surg Hx/FS Hx/Imm Hx Cardiovascular History: Hypertension GI/ History: Gastrointestional Bleed Other Cancer History: SKIN CANCER - Surgical History Surgical History: Yes Surgery Procedure, Year, and Place: VEIN STRIPPING, HYSTERECTOMY, LASER EYE, LEFT LEG INFECTION DEBRIDEMENT, SKIN CANCER-FACIAL - Family History Known Family History: Positive: Non-Contributory Negative: Blood Disorder - Social History Alcohol Use: None Substance Use Type: None Smoking Status (MU): Never Smoked Tobacco - Immunization History Most Recent Influenza Vaccination: 2011 Most Recent Pneumonia Vaccination: unknown Review of Systems All Other Systems Reviewed And Are Negative: Yes Constitutional: Positive: Negative Skin: Positive: Other - ERYTHEMA/EDEMA RIGHT ANKLE Respiratory: Positive: Negative Cardiovascular: Positive: Negative Gastrointestinal: Positive: Negative Musculoskeletal: Positive: Edema Physical Exam Triage Information Reviewed: Yes Appearance: Well-Appearing, No Pain Distress, Well-Nourished Vital Signs: Initial Vital Signs Temp 98.4 F 09/16/19 15:24 Pulse 62 09/16/19 15:24 Resp 18 09/16/19 15:24 BP 158/77 09/16/19 15:24 Pulse Ox 98 09/16/19 15:24 Vital Signs Reviewed: Yes Eyes: Positive: Conjunctiva Clear ENT: Positive: Hearing grossly normal Neck: Positive: Supple Respiratory: Positive: No respiratory distress, No accessory muscle use Cardiovascular: Positive: Pulses Normal Abdomen Description: Positive: Soft Musculoskeletal: Positive: Edema @ - RIGHT ANKLE, Other: - TTP RIGHT ANKLE DISTAL TO MEDIAL MALLEOLUS Neurological: Positive: Alert Psychological: Positive: Normal Response To Family, Age Appropriate Behavior Skin: Positive: Other - RIGHT MEDIAL ANKLE WITH ERYTHEMA. SKIN STAINED FROM IODINE. SPFL EXCORATION AND PEELING SKIN Diagnostics - Radiology RIGHT ANKLE XRAYS Radiology Interpretation Completed By: Radiologist Summary of Radiographic Findings: MEDIAL SOFT TISSUE SWELLING, NO FRACTURE IS SEEN. Course/Dx - Course Course Of Treatment: PRESENTATION CONSISTENT WITH CELLULITIS OF THE RIGHT ANKLE. WILL COVER WITH KEFLEX TWICE DAILY FOR 7 DAYS. X-RAYS NEGATIVE FOR ACUTE BONY INJURY. ADVISED TO STOP USING IODINE THIS CAN BE IRRITATING TO THE SKIN WITH CHRONIC USE. KEEP LEGS ELEVATED WHILE SEATED. FOLLOW-UP WITH PCP IN 2-3 DAYS FOR RECHECK. - Diagnoses Provider Diagnosis: Cellulitis of right ankle Discharge ED - Sign-Out/Discharge Documenting (check all that apply): Patient Departure All imaging exams completed and their final reports reviewed: Yes - Discharge Plan Condition: Stable Disposition: HOME Prescriptions: Cephalexin CAP* [Keflex 500 CAP*] 1,000 mg PO BID #28 cap Patient Education Materials: Cellulitis (ED) Referrals: Olinda Sotelo MD [Primary Care Provider] - 3 Days Additional Instructions: X-RAY NEGATIVE FOR ANY BONY INJURY. PRESENTATION CONSISTENT WITH CELLULITIS OF THE RIGHT ANKLE. TAKE THE ANTIBIOTICS TWICE DAILY PRESCRIBED. KEEP THE FOOT ELEVATED WHILE SEATED. COVER WITH BACITRACIN ANTIBIOTIC OINTMENT. STOP USING IODINE SOLUTION. GO TO THE ER WITHOUT FAIL IF YOU DEVELOP CONTINUED SPREADING REDNESS OF THE SKIN, PURULENT DRAINAGE, FEVER, INCREASED PAIN OR ANY OTHER CONCERNING SYMPTOMS. FOLLOW-UP WITH YOUR PCP IN SEVERAL DAYS FOR REEVALUATION. - Billing Disposition and Condition Condition: STABLE Disposition: Home
== END 2019-09-16 17:35 | disposition home or self-care (01) ==
LOC: UCEAST 13:35
DX: L03.115 Cellulitis of right lower limb (principal); M79.89 Other specified soft tissue disorders; I10 Essential (primary) hypertension; Z88.8 Allergy status to other drugs, medicaments and biological substances; Z85.828 Personal history of other malignant neoplasm of skin; Z88.1 Allergy status to other antibiotic agents
CPT/HCPCS: 99212; G0463

== ENCOUNTER 2023-09-03 11:07 | Observation (INO) ==
[2023-09-03 11:39] LABS: ABS Basophils 0.1 10^3/uL (0.0-0.1); ABS Eosinophils 0.1 10^3/uL (0.0-0.5); ABS Lymphocytes 1.6 10^3/uL (1.0-4.8); ABS Neutrophils 6.9 10^3/uL (1.5-7.6); ABS Nucleated RBC 0.03 10^3/ul; Eosinophil % 0.8 %; Hematocrit 45.9 % (35-45); Hemoglobin 16.2 g/dL (11.5-14.3); Lymphocyte % 17.1 %; Mean Corpuscular Hemoglobin 31.7 pg (27-33); Mean Corpuscular Hgb Conc 35.3 g/dL (31-36); Mean Corpuscular Volume 89.8 fL (80-97); Mean Platelet Volume 8.8 fL (7.5-11.2); Nucleated Red Blood Cells % 0.3 %/100WBC (0.0-0.8); Platelet Count 238 10^3/uL (150-450); Red Blood Count 5.11 10^6/uL (3.63-4.92); White Blood Count 9.6 10^3/uL (3.8-11.8)
[2023-09-03 12:00] LABS: INR 1.02 (0.83-1.13)
[2023-09-03 12:02] LABS: Albumin 3.7 g/dL (3.2-5.2); Albumin/Globulin Ratio 1.2 (1-3); Calcium 9.6 mg/dL (8.6-10.3); Creatinine, Serum 0.73 mg/dL (0.51-0.95); Globulin 3.2 g/dL (2-4); Potassium 2.9 mmol/L (3.5-5.0); Total Protein 6.9 g/dL (6.4-8.9); eGFR CKD-EPI 79.5 (>60)
[2023-09-03] MEDS ORDERED: Potassium Chlor 20 meq TAB.ER PO ONE ×2 (12:14→17:39)
[2023-09-03 12:33] LABS: Urine Appearance Clear; Urine Bilirubin Negative (Negative); Urine Blood Negative (Negative); Urine Color Straw; Urine Glucose Negative (Negative); Urine Ketones Negative (Negative); Urine Nitrite Negative (Negative); Urine Protein Negative (Negative); Urine Specific Gravity 1.006 (1.002-1.030); Urine Urobilinogen Negative (Negative)
[2023-09-03] MEDS: KCL 20 MEQ/100 ML IVPREMIX 20 MEQ/100 ML BAG IV SCH ×2 (13:02→17:23)
[2023-09-03 13:13] LABS: High Sensitivity Troponin 1 Hr 299 pg/mL (<15)
[2023-09-03] MEDS ORDERED: Iohexol 350 (CONTRAST) 500 ML MDV IV ONE (13:37)
[2023-09-03] MEDS ORDERED: Dextran 70/Hypromellose Tears Eye Drops 15 ml BTL (for Artificials Tears) BOTH EYES PRN (16:55)
[2023-09-03] MEDS ORDERED: Enoxaparin 40 MG/0.4 ML SYR SUBCUT SCH (17:00)
[2023-09-03 17:26] LABS: Magnesium 1.7 mg/dL (1.9-2.7)
[2023-09-03] MEDS ORDERED: Magnesium Sulfate 2 gm BAG 2 GM/50 ML BAG IVPB ONE (19:20)
[2023-09-03 20:35] LABS: High Sensitivity Troponin 1 Hr 1046 pg/mL (<15)
[2023-09-04 07:08] LABS: ABS Eosinophils 0.1 10^3/uL (0.0-0.5); ABS Lymphocytes 1.3 10^3/uL (1.0-4.8); ABS Monocytes 0.6 10^3/uL (0.0-0.9); ABS Neutrophils 3.7 10^3/uL (1.5-7.6); ABS Nucleated RBC 0.03 10^3/ul; Eosinophil % 2.2 %; Hematocrit 44.3 % (35-45); Hemoglobin 15.4 g/dL (11.5-14.3); Lymphocyte % 22.3 %; Mean Corpuscular Hemoglobin 31.5 pg (27-33); Mean Corpuscular Hgb Conc 34.8 g/dL (31-36); Mean Corpuscular Volume 90.6 fL (80-97); Mean Platelet Volume 8.7 fL (7.5-11.2); Nucleated Red Blood Cells % 0.5 %/100WBC (0.0-0.8); Platelet Count 212 10^3/uL (150-450); Red Blood Count 4.89 10^6/uL (3.63-4.92); White Blood Count 5.9 10^3/uL (3.8-11.8)
[2023-09-04 07:24] LABS: Creatinine, Serum 0.68 mg/dL (0.51-0.95); Potassium 4.2 mmol/L (3.5-5.0); eGFR CKD-EPI 84.2 (>60)
[2023-09-04 10:11] VITALS: BP 123/70
[2023-09-04] MEDS ORDERED: Regadenoson 0.4 MG/5 ML SYRINGE ONE (12:53)
[2023-09-04] MEDS ORDERED: Aminophylline 25 MG/ML VIAL ONE (12:53)
== END 2023-09-04 16:20 | disposition home or self-care (01) ==
LOC: EDHOLD 11:07 → ED 11:07 → MEDTELE 16:15
PROVIDERS: ADMIT Internal Medicine; ATTEND Internal Medicine

== ENCOUNTER 2024-01-10 12:39 | Observation (INO) ==
[2024-01-10] MEDS: Lactated Ringers 1000 ml BAG 500 ML IV ONE (12:57)
[2024-01-10 13:38] LABS: Hematocrit 40.8 % (35-45); Hemoglobin 14.1 g/dL (11.5-14.3); Mean Corpuscular Hemoglobin 31.8 pg (27-33); Mean Corpuscular Hgb Conc 34.7 g/dL (31-36); Mean Corpuscular Volume 91.6 fL (80-97); Red Blood Count 4.45 10^6/uL (3.63-4.92); Red Cell Distribution Width 13.7 % (12-17); White Blood Count 6.1 10^3/uL (3.8-11.8)
[2024-01-10 13:49] LABS: High Sens Troponin Baseline 18 pg/mL (<15)
[2024-01-10 14:07] LABS: ABS Eosinophils 0.1 10^3/uL (0.0-0.5); ABS Lymphocytes 1.6 10^3/uL (1.0-4.8); ABS Monocytes 0.7 10^3/uL (0.0-0.9); ABS Neutrophils 3.6 10^3/uL (1.5-7.6); ABS Nucleated RBC 0.03 10^3/ul; Eosinophil % 2.1 %; Lymphocyte % 25.6 %; Nucleated Red Blood Cells % 0.5 %/100WBC (0.0-0.8); Platelet Count Platelets clumped. 10^3/uL (150-450)
[2024-01-10 14:26] LABS: ALT 30 U/L (7-52); Albumin 3.5 g/dL (3.2-5.2); Albumin/Globulin Ratio 1.3 (1-3); Alkaline Phosphatase 38 U/L (35-149); Anion Gap 11 mmol/L (2-16); Blood Urea Nitrogen 30 mg/dL (6-24); C Reactive Protein < 1.00 mg/L (<8.01); CO2 Carbon Dioxide 22 mmol/L (22-32); Calcium 8.8 mg/dL (8.6-10.3); Chloride 105 mmol/L (101-111); Creatinine, Serum 0.61 mg/dL (0.51-0.95); Globulin 2.8 g/dL (2-4); Glucose 153 mg/dL (70-100); Lipase 16 U/L (11.0-82.0); Sodium 138 mmol/L (135-145); Total Bilirubin 0.9 mg/dL (0.2-1.0); Total Protein 6.3 g/dL (6.4-8.9); eGFR CKD-EPI 86.5 (>60)
[2024-01-10 15:03] LABS: High Sensitivity Troponin 1 Hr 97 pg/mL (<15)
[2024-01-10 16:54] LABS: High Sensitivity Troponin 3 Hr 485 pg/mL (<15)
[2024-01-10 17:16] LABS: Magnesium 1.7 mg/dL (1.9-2.7); Phosphorus 2.2 mg/dL (2.5-5.0); Potassium Redraw 3.1 mmol/L (3.5-5.0)
[2024-01-10] MEDS: KCL 20 MEQ/100 ML IVPREMIX 20 MEQ/100 ML BAG IV SCH (17:59)
[2024-01-10] MEDS: Magnesium Sulfate 2 gm BAG 2 GM/50 ML BAG IVPB ONE (20:36)
[2024-01-10] MEDS ORDERED: Metoprolol Tartrate 5 mg VIAL 5 ml VIAL (1 mg/ml) IV PRN (21:25)
[2024-01-10] MEDS ORDERED: Nystatin TOP POWDER 15 GM BTL TOPICAL PRN (21:31)
[2024-01-10 21:54] LABS: TSH Ultra Thyroid Stim Horm 1.57 mcIU/mL (0.34-5.60)
[2024-01-10 22:09] LABS: High Sensitivity Troponin 1 Hr 595 pg/mL (<15)
[2024-01-10] MEDS: Potassium Chloride LIQUID 20 MEQ/15 ML LIQUID PO ONE (22:17)
[2024-01-10] MEDS: KCL 10 MEQ/50 ML IVPREMIX 10 MEQ/50 ML BAG IV SCH (22:20)
[2024-01-10] MEDS: Enoxaparin 40 MG/0.4 ML SYR SUBCUT SCH (22:21)
[2024-01-10] MEDS: Potassium Phosphate IV 10 MMOL in NS 0.9% 250 ml 250 ML IVPB ONE (23:55)
[2024-01-11 00:04] LABS: High Sensitivity Troponin 3 Hr 460 pg/mL (<15)
[2024-01-11 06:23] LABS: ABS Eosinophils 0.1 10^3/uL (0.0-0.5); ABS Lymphocytes 1.6 10^3/uL (1.0-4.8); ABS Monocytes 0.6 10^3/uL (0.0-0.9); ABS Neutrophils 2.9 10^3/uL (1.5-7.6); Eosinophil % 2.6 %; Hematocrit 38.9 % (35-45); Hemoglobin 13.4 g/dL (11.5-14.3); Lymphocyte % 30.8 %; Mean Corpuscular Hemoglobin 31.7 pg (27-33); Mean Corpuscular Hgb Conc 34.4 g/dL (31-36); Mean Corpuscular Volume 92.4 fL (80-97); Mean Platelet Volume 8.9 fL (7.5-11.2); Platelet Count 172 10^3/uL (150-450); Red Blood Count 4.21 10^6/uL (3.63-4.92); Red Cell Distribution Width 13.5 % (12-17); White Blood Count 5.3 10^3/uL (3.8-11.8)
[2024-01-11 06:46] LABS: Calcium 8.2 mg/dL (8.6-10.3); Creatinine, Serum 0.53 mg/dL (0.51-0.95); Phosphorus 3.3 mg/dL (2.5-5.0); eGFR CKD-EPI 89.5 (>60)
[2024-01-11] MEDS: CMCS:Dorzolamide/Timolol OPTH (NF) 10 ML BOT BOTH EYES SCH (10:16)
[2024-01-11] MEDS: Cholecalciferol (VIT D3) 1,000 unit TAB PO SCH (10:18)
[2024-01-12] MEDS: CMCS: Dorzolamide/Timolol OPTH (NF) 10 ML BOT BOTH EYES SCH (06:43)
[2024-01-12 08:27] LABS: ABS Eosinophils 0.2 10^3/uL (0.0-0.5); ABS Monocytes 0.5 10^3/uL (0.0-0.9); ABS Neutrophils 3.1 10^3/uL (1.5-7.6); Eosinophil % 3.6 %; Hematocrit 39.8 % (35-45); Hemoglobin 13.8 g/dL (11.5-14.3); Lymphocyte % 20.3 %; Mean Corpuscular Hemoglobin 31.8 pg (27-33); Mean Corpuscular Hgb Conc 34.8 g/dL (31-36); Mean Corpuscular Volume 91.5 fL (80-97); Mean Platelet Volume 8.6 fL (7.5-11.2); Nucleated Red Blood Cells % 0.1 %/100WBC (0.0-0.8); Platelet Count 174 10^3/uL (150-450); Red Blood Count 4.34 10^6/uL (3.63-4.92); Red Cell Distribution Width 13.3 % (12-17); White Blood Count 4.8 10^3/uL (3.8-11.8)
[2024-01-12 09:11] LABS: Calcium 8.5 mg/dL (8.6-10.3); Creatinine, Serum 0.62 mg/dL (0.51-0.95); Potassium 3.8 mmol/L (3.5-5.0); eGFR CKD-EPI 86.1 (>60)
[2024-01-12 09:56] LABS: Magnesium 1.8 mg/dL (1.9-2.7)
[2024-01-12] MEDS: Potassium Chlor 20 meq TAB.ER PO ONE (10:07)
[2024-01-12] MEDS: Magnesium Sulfate 2 gm BAG 2 GM/50 ML BAG IVPB ONE (10:19)
[2024-01-12 10:35] VITALS: BP 138/62
== END 2024-01-12 12:40 | disposition home or self-care (01) ==
LOC: EDHOLD 12:39 → ED 12:39 → MEDTELE 20:34
PROVIDERS: ADMIT Student in an Organized Health Care Education/Training Program; ATTEND Internal Medicine